=== PATIENT | male | born 1960 | race Caucasian/White ===

== ENCOUNTER 2018-04-24 06:28 | Observation (INO) | payer OTHER ==
[~2018-04-24] VITALS: Ht 177.8 cm; Wt 77.2 kg
[2018-04-24] VITALS (8 sets, daily range): BP systolic 143–187; BP diastolic 85–101
[~2018-04-24 06:28] MED LIST: CARI250T PO; HYDR-2678 PO; NAPR-683 PO; OMEP20TA8 PO; POTA20TA12 PO; VALS1TAB27 PO; [UNRECOGNIZED DRUG - OTHER]
--- NOTE | 2018-04-24 06:38 | EKG ---
[address] [address] Test Date: 2018-04-24 Test Time: 06:33:22 Pat Name: YELENA ESPANA Department: Room: Gender: M [employer] Law Clerk: : 1960 Requested By: BARBY VELEZ Order Number: [id number] Reading MD: Mik Hoskins MD Measurements Intervals [place] Rate: 72 P: 51 [place]: 174 QRS: 78 QRSD: 92 T: 28 QT: 414 QTc: 455 Interpretive Statements SINUS RHYTHM Electronically Signed On 04-24-2018 10:25:15 CDT by Mik Hoskins MD
[2018-04-24] MEDS: NITROGLYCERIN SUBLINGUAL 0.4 MG BOTTLE OF 25. SL PRN ×2 (06:40→20:36)
--- NOTE | 2018-04-24 06:50 | PHYS DOC ---
Past History Past Medical History: High Cholesterol, Hypertension, Other Additional Past Medical Histor: cerebral palsy, pulmonary hypertension Past Surgical History: Spleenectomy, Other Smoking: Non-smoker Alcohol Use: None Drug Use: None Adult General Chief Complaint Chief Complaint: CHEST PAIN [facility] HPI Patient is a 57-year-old female patient brought in by EMS because of chest pain. Patient complaining of left-sided chest pain since 2 AM that woke him up as a constant pain with episodes of sharp pain for about 30 seconds without radiation. Patient complaining of nausea and dizziness without shortness of breath, fever and chills, palpitation, focal neuro deficit. Patient states he had history of chest pain yesterday and diagnosed with coronary artery disease but did not have any procedure. Patient rated his pain as a severe pain. Patient has history of hypertension and dyslipidemia without diabetes. Patient does not smoke cigarettes but states he drinks 2-3 shots of hard liquor every day. Review of Systems Review of Systems Constitutional: Denies fever or chills [] Eyes: Denies change in visual acuity, redness, or eye pain [] HENT: Denies nasal congestion or sore throat [] Respiratory: Denies cough or shortness of breath [] Cardiovascular: No additional information not addressed in HPI [] GI: Denies abdominal pain, nausea, vomiting, bloody stools or diarrhea [] : Denies dysuria or hematuria [] Musculoskeletal: Denies back pain or joint pain [] Integument: Denies rash or skin lesions [] Neurologic: Denies headache, focal weakness or sensory changes [] Endocrine: Denies polyuria or polydipsia [] All other systems were reviewed and found to be within normal limits, except as documented in this note. Current Medications Current Medications Current Medications Medications (Trade) Dose Ordered Sig/Papito Start Time Stop Time Status Last Admin Dose Admin Aspirin (Children'S Aspirin) 324 mg 1X ONCE 04/24/18 07:00 04/24/18 07:01 04/24/18 06:39 324 MG Nitroglycerin (Nitrostat) 0.4 mg PRN Q5MIN PRN 04/24/18 06:45 04/25/18 06:44 04/24/18 06:40 0.4 MG Allergies Allergies Allergies Coded Allergies Type Severity Reaction Last Updated Verified No Known Drug Allergies 03/17/15 No Physical Exam Physical Exam Constitutional: Well nourished, mild distress, non-toxic appearance. [] HENT: Normocephalic, atraumatic, oropharynx moist, no oral exudates, nose normal. [] Eyes: PERRLA, EOMI, conjunctiva normal, no discharge. [] Neck: Normal range of motion, no tenderness, supple, no stridor. [] Cardiovascular:Heart rate regular rhythm, no murmur [] Lungs & Thorax: Bilateral breath sounds clear to auscultation [] Abdomen: Bowel sounds normal, soft, no tenderness, no masses, no pulsatile masses. [] Skin: Warm, dry, no erythema, no rash. [] Back: No tenderness, no CVA tenderness. [] Extremities: No tenderness, no cyanosis, no clubbing, ROM intact, no edema. [] Neurologic: Alert and oriented X 3, normal motor function, normal sensory function, no focal deficits noted. [] Psychologic: Affect anxious, judgement normal, mood normal. [] Current Patient Data Vital Signs Vital Signs Date Time Temp Pulse Resp B/P (MAP) Pulse Ox O2 Delivery O2 Flow Rate FiO2 04/24/18 06:40 68 200/118 EKG EKG Age interpreted by me. EKG at 0633 showed normal sinus rhythm at rate of 72, no ST and T-wave abnormalities[] Radiology/Procedures Radiology/Procedures [][address] [address] IMAGING REPORT Signed PATIENT: YELENA ESPANA ACCOUNT: [id number] : 1960 LOCATION: ER AGE: 57 SEX: M EXAM STATUS: REG ER ORD. PHYSICIAN: BARBY VELEZ MD REASON: chest pain PROCEDURE: PORTABLE CHEST 1V Portable chest, 04/24/2018: HISTORY: Chest pain Comparison is made to a study from 06/11/2013. The heart size and pulmonary vascularity are normal. No pulmonary consolidation is seen. There is no evidence of pleural fluid. IMPRESSION: No acute cardiopulmonary abnormality is detected. Electronically signed by: Ken Barrios MD (04/24/2018 7:38 AM) [facility] DICTATED AND SIGNED BY: KEN BARRIOS MD DATE: 04/24/18 1836 CC: BARBY VELEZ MD; JANA SHELTON MD ~ Course & Med Decision Making Course & Med Decision Making Pertinent Labs and Imaging studies reviewed. (See chart for details) Evaluation of patient in ER showed 57-year-old female patient with history of chronic alcohol abuse with complaining of chest pain since 2 AM. Patient had unremarkable EKG and chest x-ray and cardiac enzyme. Patient instructed not to 1 and his pain resolved. Patient had elevation of blood pressure that gradually decreased. Patient had potassium of 2.7 and magnesium of 1.3 and treated with IV magnesium and potassium. Dr. Agrawal informed at 0740 and agreed with admission of patient [] Dragon Disclaimer Dragon Disclaimer This electronic medical record was generated, in whole or in part, using a voice recognition dictation system. Departure Departure: Impression: Primary Impression: Acute chest pain Additional Impressions: Hypokalemia Hypomagnesemia Hypocalcemia Bilirubinemia Hypertensive urgency Elevated liver function tests Alcohol abuse Mononucleosis Disposition: ADMITTED INPATIENT (at 0 741) Admitting Physician: Bobo Agrawal Condition: IMPROVED Referrals: JANA SHELTON MD (PCP) Problem Qualifiers BARBY VELEZ MD Apr 24, 2018 06:50
[2018-04-24 06:59] LABS: HEMATOCRIT 48.9 % (39.0-53.0); HEMOGLOBIN 17.8 g/dL (13.0-17.5); MEAN CORPUSCULAR HEMOGLOBIN 36 pg (25-35); MEAN CORPUSCULAR VOLUME 100 fL (79-100); WHITE BLOOD COUNT 8.4 x10^3/uL (4.0-11.0)
[2018-04-24 07:00] LABS: BASO # 0.1 x10^3/uL (0.0-0.2); BASO % 1 % (0-3); EOS # 0.3 x10^3/uL (0.0-0.7); EOS % 4 % (0-3); LYMPH # 3.6 x10^3/uL (1.0-4.8); LYMPH % 43 % (24-48); MEAN CORPUSCULAR HGB CONC 36 g/dL (31-37); MONO # 1.4 x10^3/uL (0.0-1.1); MONO % 17 % (0-9); NEUT # 2.9 x10^3uL (1.8-7.7); NEUT % 35 % (31-73); PLATELET COUNT 207 x10^3/uL (140-400); RED CELL DISTRIBUTION WIDTH 14.5 % (11.5-14.5)
[2018-04-24] MEDS ORDERED: ASPIRIN 81 MG TAB.CHEW PO ONE (07:00)
[2018-04-24 07:09] LABS: ALBUMIN 3.3 g/dL (3.4-5.0); ALBUMIN/GLOBULIN RATIO 0.8 (1.0-1.7); ALK PHOS 71 U/L (46-116); ALT (SGPT) 62 U/L (16-63); ANION GAP 11 (6-14); AST (SGOT) 52 U/L (15-37); BLOOD UREA NITROGEN 7 mg/dL (8-26); BUN/CREATININE RATIO 9 (6-20); CALCIUM 8.4 mg/dL (8.5-10.1); CARBON DIOXIDE 29 mmol/L (21-32); CHLORIDE 105 mmol/L (98-107); CREATININE 0.8 mg/dL (0.7-1.3); GFR 99.6; GLUCOSE 108 mg/dL (70-99); LIPASE 161 U/L (73-393); MAGNESIUM 1.3 mg/dL (1.8-2.4); SODIUM 145 mmol/L (136-145); TOTAL BILIRUBIN 1.7 mg/dL (0.2-1.0); TOTAL PROTEIN 7.3 g/dL (6.4-8.2)
[2018-04-24 07:22] LABS: POTASSIUM 2.7 mmol/L (3.5-5.1)
[2018-04-24] MEDS ORDERED: MAGNESIUM SULFATE 1GM 100 ML IV ONE (07:30)
[2018-04-24] MEDS ORDERED: POTASSIUM CHLORIDE 20MEQ 100 ML IV ONE (07:30)
--- NOTE | 2018-04-24 07:42 | RAD ---
Portable chest, 04/24/2018: HISTORY: Chest pain Comparison is made to a study from 06/11/2013. The heart size and pulmonary vascularity are normal. No pulmonary consolidation is seen. There is no evidence of pleural fluid. IMPRESSION: No acute cardiopulmonary abnormality is detected. Electronically signed by: Ken Barrios MD (04/24/2018 7:38 AM) [facility]
[2018-04-24] MEDS ORDERED: POTASSIUM CHLORIDE 20 MEQ/15 ML ORAL LIQUID. FT SCH (09:00)
[2018-04-24] MEDS ORDERED: ONDANSETRON PF 4 MG/2 ML VIAL. IV PRN (09:00)
--- NOTE | 2018-04-24 09:21 | PDOC2 ---
CONSULT Date of Admission DATE: 04/24/18 TIME: :20 Reason for Consult: cp Problem List Problems Medical Problems: (1) Acute chest pain Status: Acute (2) Alcohol abuse Status: Acute (3) Bilirubinemia Status: Acute (4) Elevated liver function tests Status: Acute (5) Hypertensive urgency Status: Acute (6) Hypocalcemia Status: Acute (7) Hypokalemia Status: Acute (8) Hypomagnesemia Status: Acute (9) Mononucleosis Status: Acute History of Present Illness Mr Rojo is a 57 year old male who presents with complaints of chest pain which woke him from sleep. He reports a left sided chest pressure, radiating to his back which woke him from sleep early this am. He reports it lasted for about 30 seconds. He was able to go back to sleep. On rising at his normal time he had reoccurrence of pain while getting ready for work. This time he had associated weakness and lightheadedness so his called EMS. On arrival to the ED he was given NTG which resolved his discomfort. He is currently resting quietly. He denies prior discomfort, denies orthopnea or PND, denies palpitations or prior lightheadedness or syncope. He does have oxygen at home that he reports is for use on an as needed basis. Past Medical History cerebral palsy Cardiovascular: HTN, hyperipidemia Pulmonary: Other (pulmonary hypertension) GI: GI bleed Heme/Onc: Hemochromatosis Rheumatologic: Gout Past Surgical History cholecystectomy, splenectomy, left arthroscopic knee surgery, stretching of the hamstring muscles when he was young and colonoscopy for GI bleeding ~2years ago Past Surgical History: Cholecystectomy Family History Migraines, hemochromatosis, pancreatic cancer. no known premature coronary disease. Social History Non smoker, no illicit drugs, 3 shots of whiskey daily Current Medications Current Medications Aspirin (Children'S Aspirin) 324 mg 1X ONCE PO Last administered on 04/24/18at 06:39; Start 04/24/18 at 07:00; Stop 04/24/18 at 07:01; Status DC Nitroglycerin (Nitrostat) 0.4 mg PRN Q5MIN PRN SL CP RATING > 1/10 Last administered on 04/24/18at 06:40; Start 04/24/18 at 06:45; Stop 04/25/18 at 06:44 Potassium Chloride 100 ml @ 50 mls/hr 1X ONCE IV Last administered on at 07:37; Start 04/24/18 at 07:30; Stop 04/24/18 at 09:29 Magnesium Sulfate 100 ml @ 100 mls/hr 1X ONCE IV Last administered on at 07:38; Start 04/24/18 at 07:30; Stop 04/24/18 at 08:29; Status DC Ondansetron HCl (Zofran) 4 mg PRN Q8HRS PRN IV NAUSEA/VOMITING; Start 04/24/18 at 09:00 Potassium Chloride (KCl Oral Soln) 40 meq Q4H FT ; Start 04/24/18 at 09:00; Stop 04/24/18 at 13:01 Acetaminophen/ Hydrocodone Bitart (Lortab 10/325) 1 tab PRN Q6HRS PRN PO PAIN; Start 04/24/18 at 09:15 Active Scripts Active Potassium Chloride 20 Meq Tab.er.prt 1 Tab PO TIDWMEALS Reported Lortab 5-325 mg Tablet (Hydrocodone/Acetaminophen) 1 Each Tablet 1 Tab PO PRN Q6HRS PRN Soma (Carisoprodol) 250 Mg Tablet 250 Mg PO Naprosyn (Naproxen) 500 Mg Tablet 500 Mg PO Valsartan-Hctz 160-12.5 Mg Tab (Valsartan/Hydrochlorothiazide) 1 Each Tablet 1 Each PO [Amolodopine] Omeprazole 20 Mg Tablet.dr 20 Mg PO Allergies: Coded Allergies: No Known Drug Allergies (Unverified , 03/17/15) Review of System as per HPI or negative General: Alert, Oriented X3, Cooperative, No acute distress HEENT: Atraumatic, EOMI, Mucous membr. moist/pink Lungs: Other (decreased bases otherwise clear) Heart: Regular rate, Normal S1, Normal S2 Abdomen: Normal bowel sounds, Soft, No tenderness Extremities: No cyanosis, No edema, Normal pulses Psych/Mental Status: Mental status NL, Mood NL VITALS Vital Signs Date Time Temp Pulse Resp B/P (MAP) Pulse Ox O2 Delivery O2 Flow Rate FiO2 04/24/18 09:04 98.5 65 20 187/101 (129) 94 Nasal Cannula 2.0 Labs Laboratory Tests Test 04/24/18 06:32 White Blood Count 8.4 x10^3/uL (4.0-11.0) Red Blood Count 4.90 x10^6/uL (4.30-5.70) Hemoglobin 17.8 g/dL (13.0-17.5) Hematocrit 48.9 % (39.0-53.0) Mean Corpuscular Volume 100 fL (79-100) Mean Corpuscular Hemoglobin 36 pg (25-35) Mean Corpuscular Hemoglobin Concent 36 g/dL (31-37) Red Cell Distribution Width 14.5 % (11.5-14.5) Platelet Count 207 x10^3/uL (140-400) Neutrophils (%) (Auto) 35 % (31-73) Lymphocytes (%) (Auto) 43 % (24-48) Monocytes (%) (Auto) 17 % (0-9) Eosinophils (%) (Auto) 4 % (0-3) Basophils (%) (Auto) 1 % (0-3) Neutrophils # (Auto) 2.9 x10^3uL (1.8-7.7) Lymphocytes # (Auto) 3.6 x10^3/uL (1.0-4.8) Monocytes # (Auto) 1.4 x10^3/uL (0.0-1.1) Eosinophils # (Auto) 0.3 x10^3/uL (0.0-0.7) Basophils # (Auto) 0.1 x10^3/uL (0.0-0.2) Prothrombin Time 11.2 SEC (9.4-11.4) Prothromb Time International Ratio 1.1 (0.9-1.1) Sodium Level 145 mmol/L (136-145) Potassium Level 2.7 mmol/L (3.5-5.1) Chloride Level 105 mmol/L (98-107) Carbon Dioxide Level 29 mmol/L (21-32) Anion Gap 11 (6-14) Blood Urea Nitrogen 7 mg/dL (8-26) Creatinine 0.8 mg/dL (0.7-1.3) Estimated GFR (Cockcroft-Gault) 99.6 BUN/Creatinine Ratio 9 (6-20) Glucose Level 108 mg/dL (70-99) Calcium Level 8.4 mg/dL (8.5-10.1) Magnesium Level 1.3 mg/dL (1.8-2.4) Total Bilirubin 1.7 mg/dL (0.2-1.0) Aspartate Amino Transf (AST/SGOT) 52 U/L (15-37) Alanine Aminotransferase (ALT/SGPT) 62 U/L (16-63) Alkaline Phosphatase 71 U/L (46-116) Creatine Kinase 38 U/L (39-308) Creatine Kinase MB (Mass) < 0.5 ng/mL (0.0-3.6) Creatine Kinase MB Relative Index 1.3 % (0-4) Troponin I Quantitative < 0.017 ng/mL (0-0.055) DZ-Kzh-X-Type Natriuretic Peptide 87 pg/mL (0-124) Total Protein 7.3 g/dL (6.4-8.2) Albumin 3.3 g/dL (3.4-5.0) Albumin/Globulin Ratio 0.8 (1.0-1.7) Lipase 161 U/L (73-393) Images EKG sinus rhythm without acute ischemic changes CXR - IMPRESSION: No acute cardiopulmonary abnormality is detected. Assessment/Plan 1. chest pain, relieved with nitrates - continue serial enzymes, add beta antony, PRN nitrates, check echo and if CE remains negative, plan for MPI in am. 2. accelerated hypertension - resume home medications and monitor 3. electrolyte imbalance - replace and monitor 4. hyperlipidemia - check lipids 5. hemochromatosis - per VIMAL CORNELL APRN Apr 24, 2018 09:21
[2018-04-24] MEDS ORDERED: METOPROLOL TART IMMED RELEASE 25 MG TABLET PO SCH (09:30)
[2018-04-24] MEDS: ASPIRIN ENTERIC COATED 81 MG TABLET.DR. PO SCH (09:30)
[2018-04-24] MEDS: HYDROcodone/APAP 10/325 1 TAB TABLET PO PRN ×3 (09:55→23:41)
[2018-04-24] MEDS: POTASSIUM CHLORIDE 20 MEQ TABLET.ER. PO SCH ×2 (09:55→13:15)
[2018-04-24 10:01] LABS: AMPHETAMINE/METHAMPHETAMINE NEG (NEG); BARBITURATES NEG (NEG); BENZODIAZEPINES NEG (NEG); CANNABINOIDS NEG (NEG); COCAINE NEG (NEG); METHADONE NEG (NEG); OPIATES NEG (NEG); PHENCYCLIDINE NEG (NEG)
[2018-04-24] MEDS ORDERED: AMLO10TA4 PO (11:23)
[2018-04-24] MEDS ORDERED: POLY17PO5 PO (11:23)
[2018-04-24] MEDS ORDERED: HALOPERIDOL LACT 5 MG/ML VIAL. IM PRN (13:30)
[2018-04-24] MEDS ORDERED: LORazepam 1 MG TABLET PO PRN ×2 (13:30)
[2018-04-24] MEDS ORDERED: diphenhydrAMINE 50 MG/ML VIAL IVP PRN (13:30)
[2018-04-24] MEDS ORDERED: LORazepam 2 MG/ML VIAL IV PRN ×3 (13:30)
[2018-04-24] MEDS ORDERED: cloNIDine HCL 0.1 MG TABLET PO PRN (13:30)
[2018-04-24] MEDS ORDERED: chlordiazePOXIDE HCL 25 MG CAPSULE PO PRN ×2 (13:30)
--- NOTE | 2018-04-24 13:53 | HP ---
ADMIT DATE: 04/24/2018 HISTORY OF PRESENT ILLNESS: The patient is a 57-year-old male patient who came to the Emergency Room complaining of chest pain that awakened him around 2:00 in the morning. He apparently woke up at 5:00 again to go to work. When he woke up at 5:00 to go to work, he started complaining again of chest pain and basically decided to come to the Emergency Room where he was evaluated, he was given sublingual nitroglycerin that has relieved his chest pain and was admitted. While in the Emergency Room, he was found also to have hypokalemia, hypomagnesemia, hypocalcemia, and his blood pressure was found to be markedly elevated and therefore he was admitted to do 2 more sets of cardiac enzyme and also to consult the Cardiology Team. PAST MEDICAL HISTORY: Significant for cerebral palsy, he is known to have hemochromatosis, hypertension, hyperlipidemia. He has had splenectomy in 2007. PAST SURGICAL HISTORY: Significant for splenectomy, left arthroscopic knee surgery, stretching of the hamstring muscles when he was young, and also colonoscopy for lower GI bleed. ALLERGIES: He has no known drug allergies. MEDICATIONS: He is currently on following medications: He is on Soma 350 mg 4 times a day; amlodipine 10 mg once a day; valsartan/hydrochlorothiazide 160/12.5 mg, he takes 2 tablets once a day; naproxen 500 mg once a day; hydrocodone/APAP 5/325 one tablet every 6 hours. He is on potassium chloride 20 mEq 3 times a day with meals, polyethylene glycol 17 gm daily for constipation, omeprazole 20 mg once a day. FAMILY HISTORY: He 1 older sister who was migraine and 1 younger brother who is also known to have hemochromatosis. His father at age of 52. The cause of his is not known to him. His mother at age of 52 because of pancreatic cancer. SOCIAL HISTORY: He is , has no children. He does not smoke, but drinks 3 shots of whiskey on a daily basis. He does not use any drugs. He works at [employer]. REVIEW OF SYSTEMS: The patient denied any blurring of vision, cataract, glaucoma, or macular degeneration. Denied any earache, tinnitus, or sensorineural deafness. Denied any nosebleeds, stuffy nose, or postnasal drip. Denied any sore throat, sore tongue, toothache, hoarseness of voice, or difficulty swallowing. Denied any nausea, vomiting, diarrhea, or constipation. Denied any hematemesis, melena, or hematochezia. Denied any dysuria, frequency, or hematuria. Did complain of chest pain, but denied any shortness of breath. Denied any nausea or vomiting. Denied any diaphoresis. LABORATORY DATA: On arrival to the Emergency Room, his lab work showed a white cell count of 8400, hemoglobin 17.8, hematocrit 48.9, MCV 100, and platelet count of 207,000 with manual differential showed 35% polymorphs, 43% lymphocytes, and 4% eosinophil. His chemistry showed a serum sodium 145, potassium 2.7, chloride 105, bicarbonate 29, anion gap of 11, BUN 7, creatinine 0.8, estimated GFR was 99 mL per minute. His glucose was 108, calcium was 8.4, magnesium was 1.3. Total bilirubin is 1.7. AST was slightly elevated at 52, ALT and alkaline phosphatase normal. His total protein was 7.3, albumin 3.3. His first set of cardiac enzymes showed troponin to be less than 0.017. His prothrombin time was 11.2, INR 1.1 and toxic screen was essentially negative. His chest x-ray showed the heart size and pulmonary vascularities are normal. No pulmonary consolidation is seen. There is no evidence of pleural effusion. The patient was admitted to do 2 more sets of cardiac enzyme and to consult the Cardiology. We will check his fasting lipid profile tomorrow. He also drinks alcohol every day, so we will start him on alcohol withdrawal protocol. He is known to have hemochromatosis and he probably needs a phlebotomy given that his hemoglobin was 17.8, hematocrit 48.9. SHANDA GIBSON MD DR: JAMEL/lyn JOB#: [id number] / [id number]
[2018-04-24 15:35] LABS: CALCIUM 8.4 mg/dL (8.5-10.1); CREATININE 0.9 mg/dL (0.7-1.3)
[2018-04-24] MEDS ORDERED: HYDR-2766 PO (15:49)
[2018-04-24] MEDS ORDERED: POTASSIUM CHLORIDE 40 MEQ in IV NORMAL SALINE 1,000ML 1,000 ML IV SCH (16:00)
--- NOTE | 2018-04-24 18:48 | EKG ---
[address] [address] Test Date: 2018-04-24 Test Time: 18:43:40 Pat Name: YELENA ESPANA Department: Room: 117 A Gender: M Director Of Consumer Marketing: : 1960 Requested By: SHANDA GIBSON Order Number: [id number] Reading MD: Mik Hoskins MD Measurements Intervals [place] Rate: 53 P: 32 [place]: 180 QRS: 39 QRSD: 92 T: 28 QT: 452 QTc: 426 Interpretive Statements SINUS RHYTHM Electronically Signed On 04-26-2018 8:21:49 CDT by Mik Hoskins MD
[2018-04-24 19:51] LABS: BACTERIA,URINE FEW /HPF (0-FEW); BILIRUBIN,URINE NEG (NEG); CLARITY,URINE CLEAR; COLOR,URINE YELLOW; GLUCOSE,URINE NEG (NEG); NITRITE,URINE NEG (NEG); RBC,URINE RARE /HPF (0-2); SQUAMOUS EPITHELIAL CELL,UR MOD /LPF; UROBILINOGEN,URINE 0.2 mg/dL (0.2 mg/dL); WBC,URINE OCC /HPF (0-4)
[2018-04-24 19:52] LABS: AMPHETAMINE/METHAMPHETAMINE NEG (NEG); BARBITURATES NEG (NEG); BENZODIAZEPINES NEG (NEG); CANNABINOIDS NEG (NEG); COCAINE NEG (NEG); METHADONE NEG (NEG); OPIATES POS (NEG); PHENCYCLIDINE NEG (NEG)
[2018-04-24] MEDS: POTASSIUM CL 40MEQ IN 0.9%NACL 1,000 ML IV SCH (20:35)
[2018-04-24] MEDS: MORPHINE SULFATE 4 MG/ML DISP.SYRIN. IV PRN (21:11)
[2018-04-24] MEDS: ENOXAPARIN ** NOTE DOSE ** SYRINGE SQ SCH (21:11)
--- NOTE | 2018-04-24 21:55 | RAD ---
CHEST AP ONLY dated 04/24/2018 6:49 PM. Comparison: 04/24/2018 Clinical Indication: SOA, DIAPHORESIS. Findings: Single upright portable exam performed. Heart and mediastinal contours are stable. Lungs are hypoinflated, limiting evaluation. There is some patchy increased density at both lung bases, unchanged. No definite pleural effusion or pneumothorax. Impression: Patchy bibasilar opacity, likely atelectasis. Electronically signed by: Ryland Patricia MD (04/24/2018 9:51 PM) [id number]
[2018-04-25 00:44] VITALS: BP 167/104
[2018-04-25] MEDS: NITROGLYCERIN SUBLINGUAL 0.4 MG BOTTLE OF 25. SL PRN (00:45)
[2018-04-25 01:05] VITALS: BP 146/88
[2018-04-25] MEDS: MORPHINE SULFATE 4 MG/ML DISP.SYRIN. IV PRN ×2 (01:06→06:36)
[2018-04-25 01:26] VITALS: BP 149/85
--- NOTE | 2018-04-25 01:39 | EKG ---
[address] [address] Test Date: 2018-04-25 Test Time: 01:36:01 Pat Name: YELENA ESPANA Department: Room: 117 A Gender: M Commodities Requirements Analyst: : 1960 Requested By: SHANDA GIBSON Order Number: [id number] Reading MD: Mik Hoskins MD Measurements Intervals [place] Rate: 57 P: 36 OR: 182 QRS: 36 QRSD: 90 T: 9 QT: 420 QTc: 412 Interpretive Statements SINUS RHYTHM Electronically Signed On 04-26-2018 8:22:17 CDT by Mik Hoskins MD
[2018-04-25 05:44] VITALS: BP 147/98
[2018-04-25] MEDS: POTASSIUM CL 40MEQ IN 0.9%NACL 1,000 ML IV SCH (06:32)
[2018-04-25 06:40] LABS: CALCIUM 8.1 mg/dL (8.5-10.1); CREATININE 0.6 mg/dL (0.7-1.3); GFR 138.9
[2018-04-25 07:10] LABS: BASO # 0.1 x10^3/uL (0.0-0.2); BASO % 1 % (0-3); EOS # 0.4 x10^3/uL (0.0-0.7); EOS % 5 % (0-3); HEMATOCRIT 45.8 % (39.0-53.0); HEMOGLOBIN 16.1 g/dL (13.0-17.5); LYMPH # 3.1 x10^3/uL (1.0-4.8); LYMPH % 39 % (24-48); MEAN CORPUSCULAR HEMOGLOBIN 36 pg (25-35); MEAN CORPUSCULAR HGB CONC 35 g/dL (31-37); MEAN CORPUSCULAR VOLUME 102 fL (79-100); MONO # 0.8 x10^3/uL (0.0-1.1); MONO % 11 % (0-9); NEUT # 3.5 x10^3uL (1.8-7.7); NEUT % 45 % (31-73); PLATELET COUNT 189 x10^3/uL (140-400); RED BLOOD COUNT 4.48 x10^6/uL (4.30-5.70); WHITE BLOOD COUNT 7.8 x10^3/uL (4.0-11.0)
[2018-04-25] MEDS ORDERED: IOHEXOL 300 MG/ML 75 ML VIAL. IV ONE (07:45)
[2018-04-25] MEDS ORDERED: REGADENOSON 0.4 MG/5 ML DISP.SYRIN. IV ONE (08:45)
[2018-04-25] MEDS ORDERED: MULTIVITAMIN with MINERAL TABLET. PO SCH (09:00)
[2018-04-25] MEDS ORDERED: FOLIC ACID 1 MG TABLET PO SCH (09:00)
[2018-04-25] MEDS ORDERED: THIAMINE IM 200 MG/2 ML VIAL. IM SCH (09:00)
[2018-04-25] MEDS ORDERED: LIDO:MAALOX 1:1 20 ML SINGLE DOSE. PO ONE (09:30)
[2018-04-25 11:51] VITALS: BP 149/82
--- NOTE | 2018-04-25 11:54 | RAD ---
CTA chest with contrast Indication: elevated d dimer, chest pain, pt could not lift arms above head, has Cerebral palsy . Comparison: No comparison is available. Technique: After intravenous contrast administration, CT imaging was performed of the chest. MIP reconstructions were obtained. Exposure: One or more of the following individualized dose reduction techniques were utilized for this examination: 1. Automated exposure control 2. Adjustment of the mA and/or kV according to patient size 3. Use of iterative reconstruction technique. FINDINGS: Pulmonary arteries: No evidence of central embolism. Note that the segmental and subsegmental branches are suboptimally opacified, limiting evaluation. Thoracic aorta: No evidence of aortic aneurysm or dissection. Thyroid gland:Visualized aspect is unremarkable. Lymph nodes:No significant enlargement Heart: No significant pericadial effusion. Esophagus: Unremarkable Pleural spaces: No significant effusion Lungs: Mild atelectasis or infiltrate in the left lower lobe and to a lesser extent right lower lobe. Trachea and central airways: Patent Bones: Degenerative changes of the spine Upper abdomen: Slices through the upper abdomen are limited due to the technique .No obvious acute findings. IMPRESSION: 1. No evidence of pulmonary embolism. However, note there is suboptimal visualization of segmental and subsegmental branches. 2. Mild infiltrates/atelectasis in lower lobes. Electronically signed by: Ryland Watson MD (04/25/2018 11:51 AM) [id number]
[2018-04-25] MEDS: ENOXAPARIN ** NOTE DOSE ** SYRINGE SQ SCH (11:56)
[2018-04-25] MEDS: ASPIRIN ENTERIC COATED 81 MG TABLET.DR. PO SCH (11:56)
--- NOTE | 2018-04-25 12:31 | PDOC ---
PROGRESS NOTES Diagnosis Problem Problems Medical Problems: (1) Acute chest pain Status: Acute (2) Alcohol abuse Status: Acute (3) Bilirubinemia Status: Acute (4) Elevated liver function tests Status: Acute (5) Hypertensive urgency Status: Acute (6) Hypocalcemia Status: Acute (7) Hypokalemia Status: Acute (8) Hypomagnesemia Status: Acute (9) Mononucleosis Status: Acute Assessment Problems Medical Problems: (1) Acute chest pain Status: Acute (2) Alcohol abuse Status: Acute (3) Bilirubinemia Status: Acute (4) Elevated liver function tests Status: Acute (5) Hypertensive urgency Status: Acute (6) Hypocalcemia Status: Acute (7) Hypokalemia Status: Acute (8) Hypomagnesemia Status: Acute (9) Mononucleosis Status: Acute 1. chest pain, relieved with nitrates - serial enzymes all negative, echo pending, MPI this am. IF echo and MPI unremarkable would consider GI evaluation outpatient. 2. accelerated hypertension - blood pressure improved. Beta antony stopped secondary to bradycardia. add ACEI. 3. bradycardia - sinus royce. stopped BB. Consider outpatient event monitoring. 4. electrolyte imbalance - replaced and now WNL 5. hyperlipidemia - lipids pending 6. elevated d dimer - CT negative for PE though suboptimal visualization of segmental and subsegmental branches. bilateral infiltrate/atelectasis. Per IM. 7. hemochromatosis - per IM Subjective episode chest pain last pm with diaphoresis, intermittent sinus bradycardia with no acute ekg changes. No chest pain, dyspnea, palpitations, lightheadedness currently. Objective tele - sinus rhythm with occasional episodes of sinus bradycardia, no acute arrhythmias. Vital Signs Date Time Temp Pulse Resp B/P (MAP) Pulse Ox O2 Delivery O2 Flow Rate FiO2 04/25/18 11:51 97.7 61 24 149/82 (104) 93 Nasal Cannula 4.0 Intake and Output 04/25/18 07:00 Intake Total 1020 ml Output Total 400 ml Balance 620 ml Intake Oral 1000 ml IV Total 20 ml Output Urine Total 400 ml Abdomen: Normal bowel sounds, Soft Heart: Regular rate, Normal S1, Normal S2 Extremities: No cyanosis, No edema, Normal pulses General: Alert, Oriented X3, Cooperative, No acute distress Lungs: Clear to auscultation Neuro: Normal speech Psych/Mental Status: Mental status NL, Mood NL Review of Relevant I have reviewed the following items eduard (where applicable) has been applied. Labs Laboratory Tests Test 04/24/18 06:32 04/24/18 09:40 04/24/18 10:35 04/24/18 13:47 White Blood Count 8.4 x10^3/uL (4.0-11.0) Red Blood Count 4.90 x10^6/uL (4.30-5.70) Hemoglobin 17.8 g/dL (13.0-17.5) Hematocrit 48.9 % (39.0-53.0) Mean Corpuscular Volume 100 fL (79-100) Mean Corpuscular Hemoglobin 36 pg (25-35) Mean Corpuscular Hemoglobin Concent 36 g/dL (31-37) Red Cell Distribution Width 14.5 % (11.5-14.5) Platelet Count 207 x10^3/uL (140-400) Neutrophils (%) (Auto) 35 % (31-73) Lymphocytes (%) (Auto) 43 % (24-48) Monocytes (%) (Auto) 17 % (0-9) Eosinophils (%) (Auto) 4 % (0-3) Basophils (%) (Auto) 1 % (0-3) Neutrophils # (Auto) 2.9 x10^3uL (1.8-7.7) Lymphocytes # (Auto) 3.6 x10^3/uL (1.0-4.8) Monocytes # (Auto) 1.4 x10^3/uL (0.0-1.1) Eosinophils # (Auto) 0.3 x10^3/uL (0.0-0.7) Basophils # (Auto) 0.1 x10^3/uL (0.0-0.2) Prothrombin Time 11.2 SEC (9.4-11.4) Prothromb Time International Ratio 1.1 (0.9-1.1) Sodium Level 145 mmol/L (136-145) Potassium Level 2.7 mmol/L (3.5-5.1) Chloride Level 105 mmol/L (98-107) Carbon Dioxide Level 29 mmol/L (21-32) Anion Gap 11 (6-14) Blood Urea Nitrogen 7 mg/dL (8-26) Creatinine 0.8 mg/dL (0.7-1.3) Estimated GFR (Cockcroft-Gault) 99.6 BUN/Creatinine Ratio 9 (6-20) Glucose Level 108 mg/dL (70-99) Calcium Level 8.4 mg/dL (8.5-10.1) Magnesium Level 1.3 mg/dL (1.8-2.4) Total Bilirubin 1.7 mg/dL (0.2-1.0) Aspartate Amino Transf (AST/SGOT) 52 U/L (15-37) Alanine Aminotransferase (ALT/SGPT) 62 U/L (16-63) Alkaline Phosphatase 71 U/L (46-116) Creatine Kinase 38 U/L (39-308) Creatine Kinase MB (Mass) < 0.5 ng/mL (0.0-3.6) Creatine Kinase MB Relative Index 1.3 % (0-4) Troponin I Quantitative < 0.017 ng/mL (0-0.055) < 0.017 ng/mL (0-0.055) < 0.017 ng/mL (0-0.055) MG-Cph-E-Type Natriuretic Peptide 87 pg/mL (0-124) Total Protein 7.3 g/dL (6.4-8.2) Albumin 3.3 g/dL (3.4-5.0) Albumin/Globulin Ratio 0.8 (1.0-1.7) Triglycerides Level 233 mg/dL (0-150) Cholesterol Level 194 mg/dL (0-200) LDL Cholesterol, Calculated 96 mg/dL (0-100) VLDL Cholesterol, Calculated 46 mg/dL (0-40) Non-HDL Cholesterol Calculated 142 mg/dL (0-129) HDL Cholesterol 52 mg/dL (40-60) Cholesterol/HDL Ratio 3.0 Lipase 161 U/L (73-393) Urine Opiates Screen Neg (NEG) Urine Methadone Screen Neg (NEG) Urine Barbiturates Neg (NEG) Urine Phencyclidine Screen Neg (NEG) Urine Amphetamine/Methamphetamine Neg (NEG) Urine Benzodiazepines Screen Neg (NEG) Urine Cocaine Screen Neg (NEG) Urine Cannabinoids Screen Neg (NEG) Urine Ethyl Alcohol Neg (NEG) Test 04/24/18 15:28 04/24/18 19:25 04/24/18 19:30 04/25/18 01:35 Sodium Level 144 mmol/L (136-145) Potassium Level 3.0 mmol/L (3.5-5.1) Chloride Level 104 mmol/L (98-107) Carbon Dioxide Level 29 mmol/L (21-32) Anion Gap 11 (6-14) Blood Urea Nitrogen 9 mg/dL (8-26) Creatinine 0.9 mg/dL (0.7-1.3) Estimated GFR (Cockcroft-Gault) 87.0 Glucose Level 187 mg/dL (70-99) Calcium Level 8.4 mg/dL (8.5-10.1) D-Dimer (Elsy) 3.74 mg/L (0.00-0.50) Troponin I Quantitative < 0.017 ng/mL (0-0.055) < 0.017 ng/mL (0-0.055) Urine Collection Type Void Urine Color Yellow Urine Clarity Clear Urine pH 6.0 Urine Specific Heyburn 1.025 Urine Protein Neg (NEG-TRACE) Urine Glucose (UA) Neg mg/dL (NEG) Urine Ketones (Stick) Trace mg/dL (NEG) Urine Blood Neg (NEG) Urine Nitrite Neg (NEG) Urine Bilirubin Neg (NEG) Urine Urobilinogen Dipstick 0.2 mg/dL (0.2 mg/dL) Urine Leukocyte Esterase Neg (NEG) Urine RBC Rare /HPF (0-2) Urine WBC Occ /HPF (0-4) Urine Squamous Epithelial Cells Mod /LPF Urine Bacteria Few /HPF (0-FEW) Urine Mucus Mod /LPF Urine Opiates Screen Pos (NEG) Urine Methadone Screen Neg (NEG) Urine Barbiturates Neg (NEG) Urine Phencyclidine Screen Neg (NEG) Urine Amphetamine/Methamphetamine Neg (NEG) Urine Benzodiazepines Screen Neg (NEG) Urine Cocaine Screen Neg (NEG) Urine Cannabinoids Screen Neg (NEG) Urine Ethyl Alcohol Neg (NEG) Test 04/25/18 06:10 White Blood Count 7.8 x10^3/uL (4.0-11.0) Red Blood Count 4.48 x10^6/uL (4.30-5.70) Hemoglobin 16.1 g/dL (13.0-17.5) Hematocrit 45.8 % (39.0-53.0) Mean Corpuscular Volume 102 fL (79-100) Mean Corpuscular Hemoglobin 36 pg (25-35) Mean Corpuscular Hemoglobin Concent 35 g/dL (31-37) Red Cell Distribution Width 15.0 % (11.5-14.5) Platelet Count 189 x10^3/uL (140-400) Neutrophils (%) (Auto) 45 % (31-73) Lymphocytes (%) (Auto) 39 % (24-48) Monocytes (%) (Auto) 11 % (0-9) Eosinophils (%) (Auto) 5 % (0-3) Basophils (%) (Auto) 1 % (0-3) Neutrophils # (Auto) 3.5 x10^3uL (1.8-7.7) Lymphocytes # (Auto) 3.1 x10^3/uL (1.0-4.8) Monocytes # (Auto) 0.8 x10^3/uL (0.0-1.1) Eosinophils # (Auto) 0.4 x10^3/uL (0.0-0.7) Basophils # (Auto) 0.1 x10^3/uL (0.0-0.2) Sodium Level 144 mmol/L (136-145) Potassium Level 4.0 mmol/L (3.5-5.1) Chloride Level 109 mmol/L (98-107) Carbon Dioxide Level 28 mmol/L (21-32) Anion Gap 7 (6-14) Blood Urea Nitrogen 9 mg/dL (8-26) Creatinine 0.6 mg/dL (0.7-1.3) Estimated GFR (Cockcroft-Gault) 138.9 Glucose Level 101 mg/dL (70-99) Calcium Level 8.1 mg/dL (8.5-10.1) Magnesium Level 1.7 mg/dL (1.8-2.4) Medications Current Medications Aspirin (Children'S Aspirin) 324 mg 1X ONCE PO Last administered on 04/24/18at 06:39; Start 04/24/18 at 07:00; Stop 04/24/18 at 07:01; Status DC Nitroglycerin (Nitrostat) 0.4 mg PRN Q5MIN PRN SL CP RATING > 1/10 Last administered on 04/25/18at 00:45; Start 04/24/18 at 06:45; Stop 04/25/18 at 06:45 ; Status DC Potassium Chloride 100 ml @ 50 mls/hr 1X ONCE IV Last administered on at 07:37; Start 04/24/18 at 07:30; Stop 04/24/18 at 09:29; Status DC Magnesium Sulfate 100 ml @ 100 mls/hr 1X ONCE IV Last administered on at 07:38; Start 04/24/18 at 07:30; Stop 04/24/18 at 08:29; Status DC Ondansetron HCl (Zofran) 4 mg PRN Q8HRS PRN IV NAUSEA/VOMITING Last administered on 04/25/18at 01:03; Start 04/24/18 at 09:00 Potassium Chloride (KCl Oral Soln) 40 meq Q4H FT ; Start 04/24/18 at 09:00; Stop 04/24/18 at 09:32; Status DC Acetaminophen/ Hydrocodone Bitart (Lortab 10/325) 1 tab PRN Q6HRS PRN PO PAIN Last administered on 04/24/18at 23:41; Start 04/24/18 at 09:15 Metoprolol Tartrate (Lopressor) 25 mg BID PO Last administered on 04/24/18at 09: 55; Start 04/24/18 at 09:30; Stop 04/24/18 at 18:54; Status DC Aspirin (Aspirin Enteric Coated) 81 mg DAILYWBKFT PO Last administered on at 11:56; Start 04/24/18 at 09:30 Potassium Chloride (Klor-Con) 40 meq Q4H PO Last administered on 04/24/18at 13: 15; Start 04/24/18 at 09:45; Stop 04/24/18 at 13:46; Status DC Multivitamins/ Calcium (Thera-M Plus) 1 tab DAILY PO Last administered on at 11:56; Start 04/25/18 at 09:00 Folic Acid (Folic Acid) 1 mg DAILY PO Last administered on 04/25/18at 11:56; Start 04/25/18 at 09:00 Thiamine HCl (Thiamine Im) 100 mg DAILY IM ; Start 04/25/18 at 09:00; Stop 04/30 at 08:59 Chlordiazepoxide (Librium) 50 mg PRN Q1HR PRN PO For CIWA 8-14; Start 04/24/18 at 13:30 Chlordiazepoxide (Librium) 100 mg PRN Q1HR PRN PO For CIWA 15 or greater; Start 04/24/18 at 13:30 Lorazepam (Ativan) 4 mg PRN Q1HR PRN PO For CIWA 8-14; Start 04/24/18 at 13:30 Lorazepam (Ativan) 8 mg PRN Q1HR PRN PO For CIWA 15 or greater; Start 04/24/18 at 13:30 Lorazepam (Ativan) 2 mg PRN Q1HR PRN IV For CIWA 8-14; Start 04/24/18 at 13:30 Haloperidol Lactate (Haldol) 5 mg PRN Q4HRS PRN IM Hallucinatns,Confusn, Delirium; Start 04/24/18 at 13:30 Diphenhydramine HCl (Benadryl) 25 mg PRN Q15MIN PRN IVP EPS symptoms 2'Haldol admin; Start 04/24/18 at 13:30 Clonidine HCl (Catapres) 0.1 mg PRN Q1HR PRN PO SBP>180 OR DBP>100, MR X 3; Start 04/24/18 at 13:30 Lorazepam (Ativan) 2 mg PRN Q15MIN PRN IV ANXIETY / AGITATION; Start 04/24/18 at 13:30 Lorazepam (Ativan) 2 mg PRN Q15MIN PRN IV ANXIETY / AGITATION; Start 04/24/18 at 13:30 Potassium Chloride 40 meq/ Sodium Chloride 1,020 ml @ 100 mls/hr [id number] IV ; Start 04/24/18 at 16:00; Stop 04/24/18 at 16:00; Status DC Potassium Chloride/Sodium Chloride 1,000 ml @ 100 mls/hr Q10H IV Last administered on 04/25/18at 06:32; Start 04/24/18 at 16:00 Morphine Sulfate (Morphine 4mg Syringe) 4 mg PRN Q4HRS PRN IV PAIN Last administered on 04/25/18at 06:36; Start 04/24/18 at 20:30 Enoxaparin Sodium (Lovenox 80mg Syringe) 75 mg BID SQ Last administered on 04/25at 11:56; Start 04/24/18 at 21:00 Iohexol (Omnipaque 300 Mg/ml) 75 ml 1X ONCE IV Last administered on 04/25/18at 08:44; Start 04/25/18 at 07:45; Stop 04/25/18 at 07:47; Status DC Regadenoson (Lexiscan) 0.4 mg 1X ONCE IV ; Start 04/25/18 at 08:45; Stop at 08:46; Status DC Multi-Ingredient Mouthwash/Gargle (Gi Cocktail) 20 ml 1X ONCE PO Last administered on 04/25/18at 09:51; Start 04/25/18 at 09:30; Stop 04/25/18 at 09:31 ; Status DC Active Scripts Active Reported Hydrocodone-Apap 10-325 (Hydrocodone Bit/Acetaminophen) 1 Each Tablet 1 Tab PO PRN Q6HRS PRN Miralax (Polyethylene Glycol 3350) 17 Gm Powd.pack 1 Packet PO DAILY Norvasc (Amlodipine Besylate) 10 Mg Tablet 1 Tab PO HS Soma (Carisoprodol) 250 Mg Tablet 350 Mg PO QIDAFTMEAL Naprosyn (Naproxen) 500 Mg Tablet 500 Mg PO DAILY Valsartan-Hctz 160-12.5 Mg Tab (Valsartan/Hydrochlorothiazide) 1 Each Tablet 2 Each PO HS Omeprazole 20 Mg Tablet.dr 20 Mg PO DAILY Vitals/I & O Vital Sign - Last 24 Hours 04/24/18 04/24/18 04/24/18 04/24/18 14:51 18:33 18:34 18:39 Temp 97.8 97.9 Pulse 59 61 65 Resp 16 18 18 B/P (MAP) 143/85 (104) 169/98 (121) 155/94 (114) Pulse Ox 91 91 93 O2 Delivery Nasal Cannula Nasal Cannula Nasal Cannula O2 Flow Rate 2.0 3.0 3.0 04/24/18 04/24/18 04/24/18 04/24/18 19:39 19:45 20:36 21:01 Temp 97.6 Pulse 61 61 64 Resp 24 20 B/P (MAP) 163/95 (117) 163/95 158/86 (110) Pulse Ox 94 92 O2 Delivery Nasal Cannula Nasal Cannula Nasal Cannula O2 Flow Rate 3.0 3.0 3.0 04/24/18 04/24/18 04/24/18 04/25/18 21:11 23:03 23:41 00:44 Temp 97.8 Pulse 66 60 Resp 20 22 B/P (MAP) 151/86 (107) 167/104 (125) Pulse Ox 92 92 94 92 O2 Delivery Nasal Cannula Nasal Cannula Nasal Cannula Nasal Cannula O2 Flow Rate 3.0 3.0 3.0 4.0 04/25/18 04/25/18 04/25/18 04/25/18 00:45 00:53 01:05 01:06 Temp 97.5 Pulse 63 66 Resp 22 B/P (MAP) 167/104 146/88 (107) Pulse Ox 92 93 92 O2 Delivery Nasal Cannula Nasal Cannula Nasal Cannula O2 Flow Rate 3.0 4.0 3.0 04/25/18 04/25/18 04/25/18 04/25/18 01:26 01:51 05:44 06:36 Temp 98.5 Pulse 64 62 Resp 22 24 20 B/P (MAP) 149/85 (106) 147/98 (114) Pulse Ox 92 93 O2 Delivery Nasal Cannula Nasal Cannula Nasal Cannula O2 Flow Rate 4.0 4.0 3.0 04/25/18 04/25/18 04/25/18 07:07 08:18 11:51 Temp 97.7 Pulse 61 Resp 24 B/P (MAP) 149/82 (104) Pulse Ox 93 93 O2 Delivery Nasal Cannula Nasal Cannula Nasal Cannula O2 Flow Rate 3.0 3.0 4.0 Intake and Output 04/24/18 04/24/18 04/25/18 15:00 23:00 07:00 Intake Total 380 ml 640 ml Output Total 150 ml 250 ml Balance 230 ml 640 ml -250 ml VIMAL BARTON [employer] Apr 25, 2018 12:31
--- NOTE | 2018-04-25 13:04 | PN ---
DATE: 04/25/2018 SUBJECTIVE: The patient is resting slightly propped up in bed, in no apparent respiratory distress. He is awake, alert, apparently had an episode of chest pain that has responded to GI cocktail. He has had a CT angio, which basically showed pulmonary arteries, no evidence of central embolism. Note that the segmental and subsegmental branches are suboptimally opacified, limiting evaluation. Thoracic aorta showed no evidence of aneurysm or dissection. No lymphadenopathy. The heart size is normal with no evidence of pericardial effusion. Esophagus is unremarkable and pleural spaces, no significant effusion or pneumothorax. The lungs has mild atelectasis and infiltrate in the left lower lobe and to a lesser extent the right lower lobe. Trachea and central airways are patent and upper abdomen evaluation is limited due to the technique and obvious acute finding. The patient has a nuclear stress test, the first was a nuclear stress test and he is going for second one this afternoon and also for an echocardiogram and depending on the finding, he might require cardiac catheterization. PHYSICAL EXAMINATION: GENERAL: When I examined him this afternoon, he was resting slightly propped up in bed, in no apparent respiratory distress. No pallor, jaundice, cyanosis, or thyromegaly. No jugular venous distension. No lower limb edema. VITAL SIGNS: His heart rate was 61, blood pressure 149/82, temperature was 97.7, respiratory rate was 24, and oxygen saturation was 93% on 2 liters of oxygen. HEAD, EYES, EARS, NOSE AND THROAT: Showed normocephalic, atraumatic. NECK: Supple. HEART: Showed normal first and second heart sounds with no gallop, rub, or murmur. CHEST: Clear to auscultation. No crepitation or rhonchi. ABDOMEN: Distended, soft, nontender. NEUROLOGIC: He is awake, alert, responding appropriately. All cranial nerves intact. He moves extremities without difficulty. He is able to walk for short distance with a walker; however, is mostly chair. His intake over the last 24 hours and output are incompletely recorded. LABORATORY DATA: His lab work showed a white cell count of 7800, hemoglobin 16, hematocrit 46, MCV 102, and a platelet count of 189,000. Serum sodium 144, potassium 4, chloride 109, bicarbonate 28, anion gap of 7, BUN 9, creatinine 0.6, estimated GFR was 139 mL per minute. His glucose was 101. Calcium was 8.1, magnesium was 1.7. ASSESSMENT: 1. Chest pain for which the patient has had 3 sets of cardiac enzymes, showed all troponin to be less than 0.017. The patient has no evidence of aortic dissection, no pulmonary emboli, no pneumothorax or pleural effusion, no pericardial effusion. He has had the first half of a nuclear stress test and will have the second half this afternoon as well as an echocardiogram to evaluate left ventricular systolic function. 2. Other medical problems include cerebral palsy. 3. Hemochromatosis. 4. Hypertension. 5. Hyperlipidemia. 6. He has secondary erythrocytosis. PLAN: To continue with current medication including alcohol withdrawal protocol. His hypokalemia has resolved. His potassium has risen from 2.7 to 4. I will discontinue his IV fluid, continue with oral potassium supplement. Await the result of the echocardiogram and stress test. The patient probably needs phlebotomy for his hemochromatosis. SHANDA GIBSON MD DR: JAMEL/lyn JOB#: [id number] / [id number]
--- NOTE | 2018-04-25 14:19 | RAD ---
MR#: [id number] Date of Study: 04/25/2018 Ordering Physician: VIMAL BARTON, Referring Physician: AMA FULLER Tech: DEBI Rowley APPROVED REPORT Test Type: Pharmacological Stress Nurse/Tech: DEBI Rowley Test Indications: Chest pain Cardiac History: hypertension Medications: see EHR Medical History: see EHR Resting Heart Rate: 60 bpm Resting Blood Pressure: 164/93mmHg Pretest Chest Pain: None Nurse/Tech Notes Consent: The procedure was explained to the patient in lay terms. Informed consent was witnessed. Patrice eout was entered into [employer]. History and Stress Test performed by DEBI Rowley Pharm. Details Pharmacologic stress testing was performed using 0.4mg per 5ml of regadenoson given intravenously ove r 7-10 seconds. POST EXERCISE Reason for Termination: Infusion complete Max HR: 101 bpm Max Blood Pressure: 171/94mmHg Blood Pressure response to exercise: Normal blood pressure response during stress. Heart Rate response to exercise: normal response Chest Pain: Yes. 5 out of 10 INTERPRETATION Stress EKG Conclusion: Baseline EKG showed sinus rhythm. No ischemic changes at peak stress. No arr hythmias. Imaging Protocol IMAGE PROTOCOL: Rest Tc-99m/stress Tc-99m 1 day Rest: Stress: Viability: Radiopharm.Tc99m [id number] Sestamibi Dose11.5mCi 34.1mCi Duration 17min. 12min. Img Date 04/25/2018 04/25/2018 Inj-Img [id number]. 60min. Rest Admin Site:IV - Right AntecubitalAdministrator: DEBI Rowley Stress Admin Site: IV - Right AntecubitalAdministrator: DEBI Rowley STRESS DATA End Diast. Vol.128.0mlAv. Heart Rate58.0bpm LVEDV index BSA2.0mlCardiac Output0.1L/min End Syst. Vol.40.0mlCO Index BSA5.1L/min LVESV index BSA1.0mlMyocardial Topf166.0g Eject. Anonxhhs37.0% Stress Rates Pk. Fill Rate2.22EDV/secLVtime Pk. Fill 145.80msec Pk. Empty Rate2.78ESV/secLVtime Pk. Hcesw493.28msec 1/3 Pk. Fill1.69EDV/sec Stress Scores Regional WT0.00Summed WT3.00 Regional WM0.00Summed WM0.00 Study quality was good. Left Ventricular size was Normal at Rest and Stress. The rest and stress images show normal perfusion, normal contraction and thickening. LV Perf. Quant 17 Seg. SSS0.00 17 Seg. SRS0.00 17 Seg. SDS0.00 Stress Defect Extent (% LAD)0.00Rest Defect Extent (% LAD)0.00Rev. Defect Extent (% LAD)0.00 Stress Defect Extent (% LCX) 0.00Rest Defect Extent (% LCX)0.00Rev. Defect Extent (% LCX)0.00 Stress Defect Extent (% RCA)0.00Rest Defect Extent (% RCA)0.00Rev. Defect Extent (% RCA)0.00 Stress Defect Extent (% YFN)0.00Rest Defect Extent (% YFN)0.00Rev. Defect Extent (% YFN)0.00 Conclusion 1. Regadenoson cardioisotope stress test did not show any evidence of ischemia or infarct. 2. Normal left ventricular systolic function with ejection fraction calculated at 69%. 3. Low risk for cardiac events. Signed by : Jt Palmer, Electronically Approved : 04/25/2018 14:18:50
[2018-04-25 15:25] VITALS: BP 154/88
--- NOTE | 2018-04-25 16:12 | CARD ---
MR#: [id number] Date of Study: 04/25/2018 Ordering Physician: SHANDA GIBSON, Referring Physician: SHANDA GIBSON, Tech: CHARANJIT Glass APPROVED REPORT EXAM: Two-dimensional and M-mode echocardiogram with Doppler and color Doppler. Other Information Quality : AverageHR: 70bpm INDICATION Chest Pain 2D DIMENSIONS RVDd3.4 (2.9-3.5cm)Left Atrium(2D)3.3 (1.6-4.0cm) IVSd1.5 (0.7-1.1cm)Aortic Root(2D)3.5 (2.0-3.7cm) LVDd4.2 (3.9-5.9cm)LVOT Diameter2.0 (1.8-2.4cm) PWd1.4 (0.7-1.1cm)LVDs2.7 (2.5-4.0cm) FS (%) 35.9 %SV50.9 ml LVEF(%)65.8 (>50%) Aortic Valve AoV Peak Michael.134.0cm/sAoV VTI29.7cm AO Peak GR.7.2mmHgLVOT Peak Michael.78.6cm/s LVOT VTI 18.85cmAO Mean GR.4mmHg KIRBY (VMAX)1.76cv3SWV (VTI)2.00cm2 Mitral Valve MV E Fmdsecqp73.5cm/sMV DECEL [id number] MV A Pnnbwqfy51.9cm/sE/A Ratio0.9 Pulmonary Valve PV Peak Tftkvykw367.3cm/sPV Peak Grad.5mmHg Tricuspid Valve TR P. Rktpudgl355om/sTR Peak Gr.39mmHg Pulmonary Vein S1 Vxwjhscf53.3cm/sD2 Wvqycfiv56.6cm/s LEFT VENTRICLE The left ventricle is normal size. There is mild to moderate concentric left ventricular hypertrophy. The left ventricular systolic function is normal. The ejection fraction is estimated at 60%. There i s normal LV segmental wall motion. The left ventricular diastolic function and filling is normal for age. RIGHT VENTRICLE The right ventricle is normal size. The right ventricular systolic function is normal. ATRIA The left atrium size is normal. The right atrium size is normal. The interatrial septum is intact wit h no evidence for an atrial septal defect or patent foramen ovale as noted on 2-D or Doppler imaging. AORTIC VALVE The aortic valve is normal in structure and function. Doppler and Color Flow revealed no significant aortic regurgitation. There is no significant aortic valvular stenosis. There is no aortic valvular v egetation. MITRAL VALVE The mitral valve is thickened but opens well. There is no evidence of mitral valve prolapse. There is no mitral valve stenosis. Doppler and Color-flow revealed trace mitral regurgitation. TRICUSPID VALVE The tricuspid valve is normal in structure. Doppler and Color Flow revealed trace to mild tricuspid r egurgitation. There is mild to moderate pulmonary hypertension. The PA pressure was estimated at 44 m mHg. There is no tricuspid valve prolapse or vegetation. There is no tricuspid valve stenosis. PULMONIC VALVE The pulmonic valve is not well visualized. Doppler and Color Flow revealed moderate pulmonic valvular regurgitation. There is no pulmonic valvular stenosis. GREAT VESSELS The aortic root is normal in size. The IVC was not visualized. PERICARDIAL EFFUSION There is no pleural effusion. There is no evidence of significant pericardial effusion. Critical Notification Critical Value: No <Conclusion> The left ventricular systolic function is normal. The ejection fraction is estimated at 60%. There is normal LV segmental wall motion. Trace mitral regurgitation. Trace to mild tricuspid regurgitation. There is mild to moderate pulmonary hypertension. The PA pressure was estimated at 44 mmHg. There is no evidence of significant pericardial effusion. Signed by : Jt Palmer, Electronically Approved : 04/25/2018 16:12:09
[2018-04-26] MEDS ORDERED: ENOXAPARIN 40 MG/0.4 ML SYRINGE. SQ SCH (09:00)
--- NOTE | 2018-04-29 19:04 | DS ---
DATE OF DISCHARGE: 04/25/2018 HISTORY OF PRESENT ILLNESS: The patient is a 57-year-old male patient, who presented to Emergency Room with chest pain that awakened him around 2:00 in the morning. When he woke up it was 5:00, to go to work, he started complaining again of chest pain and basically decided to come to the Emergency Room where he was evaluated. The sublingual nitroglycerin has relieved his chest pain and was admitted to do 2 more sets of cardiac enzyme and to consult the cardiology team. The patient has 3 sets of cardiac enzymes that ruled out myocardial infarction. He has had an echocardiogram, which basically showed that his left ventricular systolic function is normal, ejection fraction is estimated at 60%. There is normal left ventricular segmental wall motion, trace mitral regurgitation, mild tricuspid regurgitation, [id number] pulmonary hypertension. Pulmonary artery pressure was estimated at 44 mmHg. There is no evidence of significant pericardial effusion. The patient has had nuclear stress test, which basically showed that the regadenoson cardiac isotope stress test did not show any evidence of ischemia or infarct. He has normal left ventricular systolic function, ejection fraction calculated at 69%. The study was considered low risk for cardiac event as his D-dimer was high at 3.74. He also underwent CT angio, which basically showed no evidence of pulmonary embolism; however, noted there is suboptimal visualization segmental and subsegmental branches. No infiltrate, atelectasis in the lower lobes and therefore, the patient was discharged home to follow with his primary care physician. PHYSICAL EXAMINATION: GENERAL: On examining him the day of discharge, he looked well and was clearly in no apparent respiratory distress. There was no pallor, jaundice, cyanosis or thyromegaly. No jugular venous distension. No lower limb edema. VITAL SIGNS: His heart rate on the day of discharge was 53, blood pressure 154/88, temperature was 98.1, respiratory rate 24, and oxygen saturation was 94% on 4 liters of oxygen. HEAD, EYES, EARS, NOSE AND THROAT: Showed normocephalic, atraumatic. NECK: Supple. HEART: Showed normal first and second heart sounds with no gallop, rub or murmur. CHEST: Clear to auscultation. No crepitation or rhonchi. ABDOMEN: Distended, soft, nontender. No guarding or rigidity. No organomegaly. All hernial orifice intact. Bowel sounds normal. NEUROLOGIC: The patient is awake, alert, responding appropriately. All cranial nerves intact. He moves extremities without difficulty. He is able to walk for short distance with a walker; however, he is mostly using power chair. His intake on the day of discharge was 1020, output was 400. LABORATORY DATA: Showed a white cell count of 7800, hemoglobin 16, hematocrit 46, MCV 102 and platelet count of 189,000. His serum sodium was 144, potassium 4, chloride 109, bicarbonate 28, anion gap of 7, BUN 9, creatinine 0.6, estimated GFR was 114 mL per minute. His glucose was 101, calcium was 8.1, magnesium was 1.7. Serum ferritin was 613. His serum triglycerides were 76, total cholesterol 172, LDL cholesterol was 99, VLDL was 15 and HDL cholesterol was 58 and the ratio was 20. DISCHARGE MEDICATIONS: He was discharged home to continue on amlodipine besylate 10 mg once a day, Soma 250 mg 4 times a day, hydrocodone/APAP 10/325 one tablet every 6 hours, naproxen 500 mg daily, omeprazole 20 mg daily, polyethylene glycol 17 grams daily, valsartan/hydrochlorothiazide 160/12.5 two tablets once a day at bedtime. FINAL DISCHARGE DIAGNOSES: Chest pain. Note, the patient has had 3 sets of cardiac enzyme, showed old troponin to be less than 0.017. He has no evidence of aortic dissection, no pulmonary emboli, no pneumothorax, pleural effusion or pericardial effusion. Nuclear stress test was also negative and considered low risk for cardiac event. His echocardiogram showed that he has normal left ventricular systolic function, ejection fraction 60%. OTHER MEDICAL PROBLEMS: Include: A. Cerebral palsy. B. Hemochromatosis. C. Hypertension. D. Hyperlipidemia. E. Secondary erythrocytosis. SHANDA GIBSON MD DR: JAMEL/lyn JOB#: [id number] / [id number]
== END 2018-04-25 18:05 | disposition home or self-care (01) ==
LOC: ER 06:28 → 1 SOUTH 07:45 → INTOOBSV 07:45
PROVIDERS: ADMIT Internal Medicine; ATTEND Internal Medicine
DX: R07.9 Chest pain, unspecified (principal); E78.5 Hyperlipidemia, unspecified; E78.00 Pure hypercholesterolemia, unspecified; E83.42 Hypomagnesemia; E83.51 Hypocalcemia; E87.6 Hypokalemia; F10.10 Alcohol abuse, uncomplicated; I16.0 Hypertensive urgency; I10 Essential (primary) hypertension; I25.10 Atherosclerotic heart disease of native coronary artery without angina pectoris; G80.9 Cerebral palsy, unspecified; E83.119 Hemochromatosis, unspecified; D75.1 Secondary polycythemia; Z80.0 Family history of malignant neoplasm of digestive organs; Z90.81 Acquired absence of spleen; Z99.81 Dependence on supplemental oxygen
CPT/HCPCS: 36415; 71045; 71275; 78452; 80048; 80053; 80061; 80307; 81001; 82553; 82728; 83690; 83735; 83880; 84484; 85025; 85379; 85610; 93005; 93017; 93306; 96365; 96366; 96368; 96372; 96374; 96375; 96376; 99285; A9500; G0378; J1650; J2270; J2405; J3475; J3480; Q9967; G0379; G0479

== ENCOUNTER → 2019-05-11 | Outpatient (CLI) | payer OTHER ==
[~2019-05-11] MED LIST changes: +AMLO10TA4 PO; +HYDR-2769 PO; +POLY17PO5 PO
[2019-05-11 14:27] LABS: HEMATOCRIT 50.6 % (39.0-53.0); HEMOGLOBIN 17.9 g/dL (13.0-17.5)
== END | disposition home or self-care (01) ==
LOC: LAB 13:57
PROVIDERS: ATTEND Internal Medicine
DX: E83.119 Hemochromatosis, unspecified (principal)
CPT/HCPCS: 36415; 85014; 85018; 99195

== ENCOUNTER 2020-09-01 11:59 | Emergency (ER) | payer OTHER ==
[~2020-09-01] VITALS: Ht 177.8 cm; Wt 75.9 kg
[~2020-09-01 11:59] MED LIST changes: -VALS1TAB27 PO; +VALS1TAB28 PO
[2020-09-01 12:00] VITALS: BP 180/108
--- NOTE | 2020-09-01 12:28 | PHYS DOC ---
Past History Past Medical History: High Cholesterol, Hypertension, Other Additional Past Medical Histor: cerebral palsy, pulmonary hypertension (HUEY SABILLON APRN) Past Surgical History: Spleenectomy (HUEY SABILLON APRN) Smoking: Non-smoker Alcohol Use: Heavy Drug Use: None (HUEY SABILLON APRN) General Adult EDM: Chief Complaint: BACK PAIN - NO INJURY HPI: HPI: Patient is a 60-year-old male who presents with right-sided lower back pain. Patient has a history of cerebral palsy and chronic back pain. Patient states that this is happened before but it normally gets better within a couple of days of rest. Patient reports that the pain has been continuous for 2 weeks and he was unable to ambulate on his own today and using his cane. Pain is improved with sitting, worsening symptoms with standing. States he took a Soma this morning prior to arrival. Patient has an appointment with his PCP on Tuesday to discuss seeing pain management again. Denies numbness, tingling to extremities. Denies urinary retention or incontinence of bowel. (HUEY SABILLON APRN) Review of Systems: Review of Systems: Constitutional: Denies fever or chills Eyes: Denies change in visual acuity HENT: Denies nasal congestion or sore throat Respiratory: Denies cough or shortness of breath Cardiovascular: Denies chest pain or edema GI: Denies abdominal pain, nausea, vomiting, bloody stools or diarrhea : Denies dysuria Musculoskeletal: Reports right-sided lower back pain Integument: Denies rash Neurologic: Denies headache, focal weakness or sensory changes Endocrine: Denies polyuria or polydipsia Lymphatic: Denies swollen glands Psychiatric: Denies depression or anxiety (HUEY SABILLON APRN) Allergies: Allergies: Allergies Coded Allergies Type Severity Reaction Last Updated Verified No Known Drug Allergies 03/17/15 No (HUEY SABILLON APRN) Physical Exam: PE: Constitutional: Well developed, well nourished, no acute distress, non-toxic appearance. [] HENT: Normocephalic, atraumatic, bilateral external ears normal, oropharynx moist, no oral exudates, nose normal. [] Eyes: PERRLA, EOMI, conjunctiva normal, no discharge. [] Neck: Normal range of motion, no tenderness, supple, no stridor. [] Cardiovascular:Heart rate regular rhythm, no murmur [] Lungs & Thorax: Bilateral breath sounds clear to auscultation [] Abdomen: Bowel sounds normal, soft, no tenderness, no masses, no pulsatile masses. [] Skin: Warm, dry, no erythema, no rash. [] Back: Right-sided lower back tenderness, no CVA tenderness. [] Extremities: No tenderness, no cyanosis, no clubbing, ROM intact, no edema. [] Neurologic: Alert and oriented X 3, normal motor function, normal sensory function, no focal deficits noted. [] Psychologic: Affect normal, judgement normal, mood normal. [] (HUEY SABILLON APRN) Current Patient Data: Vital Signs: Vital Signs Date Time Temp Pulse Resp B/P (MAP) Pulse Ox O2 Delivery O2 Flow Rate FiO2 09/01/20 12:00 97.6 66 18 180/108 (132) 94 Room Air (HUEY SABILLON APRN) EKG: EKG: [] (HUEY SABILLON APRN) Radiology/Procedures: Radiology/Procedures: [] (HUEY SABILLON APRN) Heart Score: Risk Factors: Risk Factors: DM, Current or recent (<one month) smoker, HTN, HLP, family history of CAD, obesity. Risk Scores: Score 0 - 3: 2.5% MACE over next 6 weeks - Discharge Home Score 4 - 6: 20.3% MACE over next 6 weeks - Admit for Clinical Observation Score 7 - 10: 72.7% MACE over next 6 weeks - Early Invasive Strategies (HUEY SABILLON APRN) Course & Med Decision Making: Course & Med Decision Making Pertinent Labs and Imaging studies reviewed. (See chart for details) [60-year-old male presents with right-sided lower back pain. Patient has history of chronic back pain and cerebral palsy. Patient denies numbness and tingling to extremities. Patient denies urinary retention or incontinence of bowl.] Reassessed patients pain. Patient states pain has improved. Will DC to home. Patient to follow up with PCP on Tuesday to discuss restarting pain management.Patient agrees with this plan. (HUEY SABILLON APRN) Dragon Disclaimer: Dragon Disclaimer: This electronic medical record was generated, in whole or in part, using a voice recognition dictation system. (HUEY SABILLON APRN) Departure Departure: Impression: Primary Impression: Chronic back pain Qualified Codes: M54.5 - Low back pain; G89.29 - Other chronic pain Disposition: 01 DC HOME SELF CARE/HOMELESS Condition: GOOD Referrals: JANA SHELTON MD (PCP) Patient Instructions: Back Pain, Adult, [id number] Additional Instructions: Please follow up with your PCP on Tuesday to discuss pain management. EMERGENCY DEPARTMENT GENERAL DISCHARGE INSTRUCTIONS Thank you for coming to [facility] (ED) today and trusting us with you care. We trust that you had a positivie experience in our Emergency Department. If you wish to speak to the department management, you may call the director at [phone]. YOUR FOLLOW UP INSTRUCTIONS ARE FOLLOWS: 1. Do you have a private Doctor? If you do not have a private doctor, please ask for a resource list of physicians or clinics that may be able to assist you with follow up care. 2. The Emergency Physician has interpreted your x-rays. The X-Ray specialist will also review them. If there is a change in the findings, you will be notified in 48 hours when at all possible. 3. A lab test or culture has been done, your results will be reviewed and you will be notified if you need a change in treatment. ADDITIONAL INSTRUCTIONS AND INFORMATION: 1. Your care today has been supervised by a physician who is specially trained in emergency care. Many problems require more than one evaluation for a complete diagnosis and treatment. We recommend that you schedule your follow up appointment as recommended to ensure complete treatment of you illness or injury. If you are unable to obtain follow up care and continue to have a problem, or if your condition worsens, we recommend that you return to the ED. 2. We are not able to safely determine your condition over the phone nor are we able to give sound medical advice over the phone. For these safety reasons, if you call for medical advice we will ask you to come to the ED for further evaluation. 3. If you have any questions regarding these discharge instructions please call the ED at [phone]. SAFETY INFORMATION: In the interest of safety, wellness, and injury prevention; we encourage you to wear your sealbelt, if you smoke; quite smoking, and we encourage family to use a protective helmet for bicycling and other sporting events that present an increased risk for head injury. IF YOUR SYMPTOMS WORSEN OR NEW SYMPTOMS DEVELOP, OR YOU HAVE CONCERNS ABOUT YOUR CONDITION; OR IF YOUR CONDITION WORSENS WHILE YOU ARE WAITING FOR YOUR FOLLOW UP APPOINTMENT; EITHER CONTACT YOUR PRIMARY CARE DOCTOR, THE PHYSICIAN WHOSE NAME AND NUMBER YOU WERE GIVEN, OR RETURN TO THE ED IMMEDIATELY. Scripts Prednisone (PREDNISONE) 20 Mg Tablet 2 TAB PO DAILY for inflammation, #8 TAB Start this medication tomorrow, Sunday 09/02 Prov: HUEY SABILLON APRN 09/01/20 Orphenadrine Citrate (ORPHENADRINE CITRATE) 100 Mg Tablet.er 100 MG PO BID for back pain, #14 TAB.SR Prov: HUEY SABILLON APRN 09/01/20 Hydrocodone Bit/Acetaminophen (HYDROCODONE-APAP 10-325 ) 1 Each Tablet 0.5-1 TAB PO PRN Q4HRS PRN for PAIN, #14 TAB 0 Refills Prov: HUEY SABILLON APRN 09/01/20 Attending Signature Attending Signature I have reviewed the PA/MORNING SHOW [employer]SC[employer] PRODUCER's note and plan of care. I was available for consultation as needed during the patient's visit in the emergency department. I agree with the clinical impression, plan, and disposition. (NORM BLUE DO) HUEY SABILLON APRN Sep 01, 2020 12:28 NORM BLUE DO Sep 02, 2020 05:44
[2020-09-01] MEDS ORDERED: HYDROmorphone PF 2 MG/ML VIAL IM ONE (12:45)
[2020-09-01] MEDS ORDERED: DEXAMETHASONE 4 MG TABLET PO ONE (12:45)
[2020-09-01] MEDS ORDERED: ORPHENADRINE CITRATE 60 MG/2 ML VIAL. IM ONE (12:45)
[2020-09-01] MEDS ORDERED: HYDR-2769 PO (12:59)
[2020-09-01] MEDS ORDERED: ORPH-16 PO (12:59)
[2020-09-01] MEDS ORDERED: PRED20TA PO (12:59)
== END 2020-09-01 13:38 | disposition home or self-care (01) ==
LOC: ER 11:59
DX: G89.29 Other chronic pain (principal); M54.5 Low back pain; G80.9 Cerebral palsy, unspecified; E78.00 Pure hypercholesterolemia, unspecified; I10 Essential (primary) hypertension; F10.20 Alcohol dependence, uncomplicated; Y90.9 Presence of alcohol in blood, level not specified
CPT/HCPCS: 96372; 99284; J1170; J2360; J8540

== ENCOUNTER 2021-03-18 11:33 | Emergency (ER) | payer OTHER ==
[~2021-03-18] VITALS: Ht 177.8 cm; Wt 75.9 kg
[~2021-03-18 11:33] MED LIST changes: +ORPH-16 PO; +PRED20TA PO
[2021-03-18] MEDS ORDERED: METH4TAB2 PO (13:40)
[2021-03-18] MEDS ORDERED: HYDR-2155 PO ×2 (13:40→13:41)
[2021-03-18 13:42] VITALS: BP 166/95
--- NOTE | 2021-03-18 13:42 | PHYS DOC ---
Past History Past Medical History: High Cholesterol, Hypertension, Other Additional Past Medical Histor: cerebral palsy, pulmonary hypertension Past Surgical History: Spleenectomy Smoking: Non-smoker Alcohol Use: None Drug Use: None Adult General Chief Complaint Chief Complaint: BACK PAIN OR INJURY [facility] HPI Patient is a 60-year-old male patient with history of hypertension, high cholesterol, cerebral palsy, chronic low back pain, who presents to the ED today complaining of 7 out of 10 bilateral low back pain, 7 out of 10 left-sided head pain, describes back pain as sharp and intermittent. Denies anything specifically exacerbating or relieving the symptoms, states he tried taking baclofen with no relief. Denies any injuries. Denies any pain radiating to bilateral lower extremities. Denies any loss of bowel/bladder function. Denies any numbness or tingling to bilateral lower extremities. Denies this being the worst headache in his life. He states he has history of similar headaches. Denies any nausea vomiting. Review of Systems Review of Systems Constitutional: Denies fever or chills [] Eyes: Denies change in visual acuity, redness, or eye pain [] HENT: Denies nasal congestion or sore throat [] Respiratory: Denies cough or shortness of breath [] Cardiovascular: No additional information not addressed in HPI [] GI: Denies abdominal pain, nausea, vomiting, bloody stools or diarrhea [] : Denies dysuria or hematuria [] Musculoskeletal: Reports low back pain Integument: Denies rash or skin lesions [] Neurologic: Reports headache, denies focal weakness or sensory changes [] All other systems were reviewed and found to be within normal limits, except as documented in this note. Allergies Allergies Allergies Coded Allergies Type Severity Reaction Last Updated Verified No Known Drug Allergies 03/17/15 No Physical Exam Physical Exam Constitutional: Well developed, well nourished, no acute distress, non-toxic appearance. [] HENT: Normocephalic, atraumatic, bilateral external ears normal, oropharynx moist, no oral exudates, nose normal. [] Eyes: PERRLA, EOMI, conjunctiva normal, no discharge. [] Neck: Normal range of motion, no tenderness, supple, no stridor. [] Cardiovascular:Heart rate regular rhythm, no murmur [] Lungs & Thorax: Bilateral breath sounds clear to auscultation [] Abdomen: Bowel sounds normal, soft, no tenderness, no masses, no pulsatile masses. [] Skin: Warm, dry, no erythema, no rash. [] Back: No tenderness, no CVA tenderness. [] Extremities: No tenderness, no cyanosis, no clubbing, ROM intact, no edema. [] Neurologic: Alert and oriented X 3, normal motor function, normal sensory funct ion, no focal deficits noted. Cranial nerves II through XII intact Psychologic: Affect normal, judgement normal, mood normal. [] Current Patient Data Vital Signs Vital Signs Date Time Temp Pulse Resp B/P (MAP) Pulse Ox O2 Delivery O2 Flow Rate FiO2 03/18/21 11:35 98.2 78 16 159/96 92 Room Air EKG EKG [] Radiology/Procedures Radiology/Procedures [] Heart Score C/O Chest Pain: N/A Risk Factors: Risk Factors: DM, Current or recent (<one month) smoker, HTN, HLP, family history of CAD, obesity. Risk Scores: Risk Factors: DM, Current or recent (<one month) smoker, HTN, HLP, family history of CAD, obesity. Course & Med Decision Making Course & Med Decision Making Pertinent Labs and Imaging studies reviewed. (See chart for details) This is a 60-year-old male patient presented to the ED today complaining of chronic low back pain and chronic left-sided headache. There is nothing acute about his symptoms today. No cauda equina syndrome symptoms. t Shaista Disclaimer Dragon Disclaimer This electronic medical record was generated, in whole or in part, using a voice recognition dictation system. Departure Departure: Impression: Primary Impression: Chronic back pain Additional Impression: Headache Disposition: 01 HOME / SELF CARE / HOMELESS Condition: STABLE Referrals: JANA SHELTON MD (PCP) follow up in one week Patient Instructions: Back Pain, Adult, Headache, FAQs Additional Instructions: Please follow-up with your primary care doctor and urologist in the next 7 days. Take the prescribed medications as ordered. Consider using a heating pad to your low back Scripts Hydrocodone Bit/Acetaminophen (HYDROCODONE-APAP 5-325 ) 1 Each Tablet 1 TAB PO PRN Q6HRS PRN for PAIN, #10 TAB 0 Refills Prov: SILVA LEARY HOME WORKER 03/18/21 Methylprednisolone (MEDROL) 4 Mg Tab.ds.pk 1 PKG PO UD, #1 PKG Prov: SILVA LEARY HOME WORKER 03/18/21 Problem Qualifiers Primary Impression: Chronic back pain Back pain location: low back pain Back pain laterality: bilateral Sciatica presence: without sciatica Qualified Codes: M54.5 - Low back pain; G89.29 - Other chronic pain Additional Impression: Headache Headache type: unspecified Headache chronicity pattern: unspecified pattern Intractability: not intractable Qualified Codes: R51.9 - Headache, unspecified SILVA LEARY HOME WORKER Mar 18, 2021 13:42
[2021-03-18] MEDS ORDERED: GABAPENTIN 100 MG CAPSULE. PO ONE (13:45)
== END 2021-03-18 13:54 | disposition home or self-care (01) ==
LOC: ER 11:33
DX: M54.42 Lumbago with sciatica, left side (principal); R51.9 Headache, unspecified; I10 Essential (primary) hypertension; E78.5 Hyperlipidemia, unspecified
CPT/HCPCS: 99283

== ENCOUNTER 2021-09-14 13:22 | Emergency (ER) | payer OTHER ==
[~2021-09-14] VITALS: Ht 175.3 cm; Wt 73.0 kg
[~2021-09-14 13:22] MED LIST changes: +HYDR-2155 PO; +METH4TAB2 PO
--- NOTE | 2021-09-14 13:53 | EKG ---
[address] [address] Test Date: 2021-09-14 Test Time: 13:37:51 Pat Name: FE ESPANA Department: Room: Gender: M Dental Chairside Assistant: : [id number] Requested By: ROMARIO CABRERA Order Number: [id number] Reading MD: Measurements Intervals [place] Rate: P: KS: QRS: QRSD: T: QT: QTc: Interpretive Statements
[2021-09-14 14:07] LABS: BASO # 0.1 x10^3/uL (0.0-0.2); BASO % 1 % (0-3); EOS # 0.3 x10^3/uL (0.0-0.7); EOS % 3 % (0-3); HEMOGLOBIN 16.9 g/dL (13.0-17.5); LYMPH # 4.4 x10^3/uL (1.0-4.8); LYMPH % 43 % (24-48); MEAN CORPUSCULAR HEMOGLOBIN 35 pg (25-35); MEAN CORPUSCULAR HGB CONC 35 g/dL (31-37); MEAN CORPUSCULAR VOLUME 99 fL (79-100); MONO # 1.4 x10^3/uL (0.0-1.1); MONO % 14 % (0-9); NEUT # 4.1 x10^3uL (1.8-7.7); NEUT % 40 % (31-73); PLATELET COUNT 198 x10^3/uL (140-400); RED BLOOD COUNT 4.86 x10^6/uL (4.30-5.70); RED CELL DISTRIBUTION WIDTH 13.8 % (11.5-14.5); WHITE BLOOD COUNT 10.3 x10^3/uL (4.0-11.0)
[2021-09-14 14:17] LABS: CALCIUM 8.5 mg/dL (8.5-10.1); CREATININE 0.7 mg/dL (0.7-1.3); GFR 114.6; POTASSIUM 3.4 mmol/L (3.5-5.1)
[2021-09-14 14:27] LABS: ALBUMIN 3.8 g/dL (3.4-5.0); ALBUMIN/GLOBULIN RATIO 1.1 (1.0-1.7); TOTAL BILIRUBIN 1.7 mg/dL (0.2-1.0); TOTAL PROTEIN 7.3 g/dL (6.4-8.2)
--- NOTE | 2021-09-14 14:56 | PHYS DOC ---
Past History Past Medical History: High Cholesterol, Hypertension, Other Additional Past Medical Histor: cerebral palsy, pulmonary hypertension (ROMARIO CABRERA APRN) Past Surgical History: Spleenectomy (ROMARIO CABRERA APRN) Smoking: Non-smoker Alcohol Use: None Drug Use: None (ROMARIO CABRERA APRN) General Adult EDM: Chief Complaint: CHEST PAIN HPI: HPI: Patient is a 61-year-old male who presents to the emergency department for left- sided chest pain that started 230 this morning when he woke up. He states it feels like something sitting on his chest and a pressure pain. He rates it 7 out of 10. Is worse with movement and palpation. Patient reports that when the chest pain occurs he does have shortness of breath. Patient reports that he has a history of this chest pain. He denies any nausea, vomiting, cough, fever. (ROMARIO CABRERA APRN) Review of Systems: Review of Systems: Constitutional: See HPI Respiratory: HPI Cardiovascular: HPI GI: See HPI (ROMARIO CABRERA APRN) Allergies: Allergies: Allergies Coded Allergies Type Severity Reaction Last Updated Verified No Known Drug Allergies 03/17/15 No (ROMARIO CABRERA APRN) Physical Exam: PE: Constitutional: Well developed, well nourished, no acute distress, non-toxic appearance. [] HENT: Normocephalic, atraumatic, bilateral external ears normal, oropharynx moist, no oral exudates, nose normal. [] Eyes: PERRL, EOMI, conjunctiva normal, no discharge. [] Neck: Normal range of motion, no tenderness, supple, no stridor. [] Cardiovascular:Heart rate regular rhythm, no murmur, chest pain reproducible with palpation [] Lungs & Thorax: Bilateral breath sounds clear to auscultation [] Abdomen: Bowel sounds normal, soft, no tenderness, no masses, no pulsatile masses. [] Skin: Warm, dry, no erythema, no rash. [] Back: Normal range of motion Extremities: No tenderness, no cyanosis, no clubbing, ROM intact, no edema. [] Neurologic: Alert and oriented X 3, normal motor function, normal sensory function, no focal deficits noted. [] Psychologic: Affect normal, judgement normal, mood normal. [] (ROMARIO CABRERA APRN) Current Patient Data: Labs: Laboratory Tests Test 09/14/21 13:49 White Blood Count 10.3 x10^3/uL (4.0-11.0) Red Blood Count 4.86 x10^6/uL (4.30-5.70) Hemoglobin 16.9 g/dL (13.0-17.5) Hematocrit 48.0 % (39.0-53.0) Mean Corpuscular Volume 99 fL (79-100) Mean Corpuscular Hemoglobin 35 pg (25-35) Mean Corpuscular Hemoglobin Concent 35 g/dL (31-37) Red Cell Distribution Width 13.8 % (11.5-14.5) Platelet Count 198 x10^3/uL (140-400) Neutrophils (%) (Auto) 40 % (31-73) Lymphocytes (%) (Auto) 43 % (24-48) Monocytes (%) (Auto) 14 % (0-9) H Eosinophils (%) (Auto) 3 % (0-3) Basophils (%) (Auto) 1 % (0-3) Neutrophils # (Auto) 4.1 x10^3uL (1.8-7.7) Lymphocytes # (Auto) 4.4 x10^3/uL (1.0-4.8) Monocytes # (Auto) 1.4 x10^3/uL (0.0-1.1) H Eosinophils # (Auto) 0.3 x10^3/uL (0.0-0.7) Basophils # (Auto) 0.1 x10^3/uL (0.0-0.2) Sodium Level 141 mmol/L (136-145) Potassium Level 3.4 mmol/L (3.5-5.1) L Chloride Level 104 mmol/L (98-107) Carbon Dioxide Level 25 mmol/L (21-32) Anion Gap 12 (6-14) Blood Urea Nitrogen 12 mg/dL (8-26) Creatinine 0.7 mg/dL (0.7-1.3) Estimated GFR (Cockcroft-Gault) 114.6 BUN/Creatinine Ratio 17 (6-20) Glucose Level 111 mg/dL (70-99) H Calcium Level 8.5 mg/dL (8.5-10.1) Total Bilirubin 1.7 mg/dL (0.2-1.0) H Aspartate Amino Transferase (AST) 43 U/L (15-37) H Alanine Aminotransferase (ALT) 47 U/L (16-63) Alkaline Phosphatase 62 U/L (46-116) Troponin I High Sensitivity 7 ng/L (4-75) Total Protein 7.3 g/dL (6.4-8.2) Albumin 3.8 g/dL (3.4-5.0) Albumin/Globulin Ratio 1.1 (1.0-1.7) Vital Signs: Vital Signs Date Time Temp Pulse Resp B/P (MAP) Pulse Ox O2 Delivery O2 Flow Rate FiO2 09/14/21 13:28 99.2 78 18 183/114 (137) 92 Room Air (ROMARIO CABRERA APRN) EKG: EKG: EKG performed by ER staff at 1337 shows sinus rhythm with a rate of 75, QTC of 418, no STEMI read by Dr. Weinberg at 1340. [] (ROMARIO CABRERA APRN) Radiology/Procedures: Radiology/Procedures: []PROCEDURE: PORTABLE CHEST 1V EXAM: Chest, single view. HISTORY: Chest pain. COMPARISON: 04/24/2018 FINDINGS: A frontal view of the chest is obtained. There aren't stable chronic a ppearing interstitial changes. There is no consolidation, pleural effusion or pneumothorax. There is a stable cardiac silhouette. IMPRESSION: Chronic appearing interstitial changes. Electronically signed by: Airam Whaley MD (09/14/2021 3:02 PM) [id number] DICTATED AND SIGNED BY: AIRAM WHALEY MD DATE: 09/14/21 1502 CC: JANA SHELTON MD; ROMARIO CABRERA APRN ~MTH0 0 (ROMARIO CABRERA APRN) Heart Score: C/O Chest Pain: Yes HEART Score for Chest Pain: HEART Score for Chest Pain Response (Comments) Value History Moderately Suspicious 1 ECG Normal 0 Age >45 - < 65 1 Risk Factors 1 or 2 Risk Factors 1 Troponin < Normal Limit 0 Total 3 Risk Factors: Risk Factors: DM, Current or recent (<one month) smoker, HTN, HLP, family history of CAD, obesity. Risk Scores: Score 0 - 3: 2.5% MACE over next 6 weeks - Discharge Home Score 4 - 6: 20.3% MACE over next 6 weeks - Admit for Clinical Observation Score 7 - 10: 72.7% MACE over next 6 weeks - Early Invasive Strategies (ROMARIO CABRERA APRN) Course & Med Decision Making: Course & Med Decision Making Pertinent Labs and Imaging studies reviewed. (See chart for details) [] Patient presents the emergency department for left-sided chest pain that started this morning at 230. Patient reports that he has a history of chest pain. Work-up in the ER consisted of blood work, EKG and chest x-ray. Patient's blood work was unremarkable, he was noted to have hypokalemia and this was replaced in the emergency department. His heart score is 3. Patient has a history of hypertension hyperlipidemia and he is 61 years old. Patient was treated with aspirin and pain medication, he reports improvement in his chest pain following. I discussed with patient all findings and diagnostic testing as well as the need to follow-up with PCP for further evaluation and treatment or return to the ER if any new or worsening symptoms. Strict return precautions were also discussed at length. Patient voiced understanding and agreement with the plan. Patient is hemodynamically stable at the time of disposition. (ROMARIO CABRERA APRN) Dragon Disclaimer: Dragon Disclaimer: This electronic medical record was generated, in whole or in part, using a voice recognition dictation system. (ROMARIO CABRERA APRN) Attending Co-Sign The patient was seen and interviewed as well as examined at the bedside. The chart was reviewed. The case was discussed. Agree with the plan of care. (ELEAZAR WEINBERG DO) Departure Departure: Impression: Primary Impression: Atypical chest pain Disposition: HOME / SELF CARE / HOMELESS Condition: GOOD Referrals: JANA SHELTON MD (PCP) Patient Instructions: Chest Pain (Nonspecific) Additional Instructions: You were seen in the emergency department today for chest pain. Your work-up in the ER was unremarkable. At this time, it does not appear that you are experiencing acute coronary syndrome. However, if you continue to have chest pain or have worsening of your chest pain you need to be reevaluated in the emergency department. Please follow-up with your primary care provider tomorrow regarding your ER visit. Please return to the emergency department if you have worsening of your chest pain, shortness of breath, high fevers refractory to treatment, intractable nausea or vomiting, palpitations. ROMARIO CABRERA APRN Sep 14, 2021 14:56 ELEAZAR WEINBERG DO Sep 15, 2021 08:28
[2021-09-14] MEDS ORDERED: ASPIRIN CHEWABLE 81 MG TABLET. PO ONE (15:00)
[2021-09-14] MEDS ORDERED: POTASSIUM CHLORIDE 20 MEQ TABLET.ER. PO ONE (15:00)
--- NOTE | 2021-09-14 15:05 | RAD ---
EXAM: Chest, single view. HISTORY: Chest pain. COMPARISON: 04/24/2018 FINDINGS: A frontal view of the chest is obtained. There aren't stable chronic appearing interstitial changes. There is no consolidation, pleural effusion or pneumothorax. There is a stable cardiac silh ouette. IMPRESSION: Chronic appearing interstitial changes. Electronically signed by: Airam Main MD (09/14/2021 3:02 PM) [id number]
[2021-09-14 16:22] VITALS: BP 152/87
== END 2021-09-14 16:58 | disposition home or self-care (01) ==
LOC: ER 13:22
DX: R07.89 Other chest pain (principal); R06.02 Shortness of breath; E78.00 Pure hypercholesterolemia, unspecified; I10 Essential (primary) hypertension
CPT/HCPCS: 36415; 71045; 80053; 84484; 85025; 93005; 96374; 96376; 99285; J3010

== ENCOUNTER 2021-11-08 16:50 | Emergency (ER) | payer OTHER ==
[~2021-11-08] VITALS: Ht 175.3 cm; Wt 73.0 kg
[2021-11-08] MEDS: MAGNESIUM SULFATE 2GM 50 ML IV SCH ×2 (00:50→20:15)
--- NOTE | 2021-11-08 17:04 | PHYS DOC ---
Past History Past Medical History: High Cholesterol, Hypertension, Other Additional Past Medical Histor: cerebral palsy, pulmonary hypertension (ELEAZAR WEINBERG DO) Past Surgical History: Spleenectomy (ELEAZAR WEINBERG DO) Smoking: Non-smoker Alcohol Use: None Drug Use: None (ELEAZAR WEINBERG DO) General Adult EDM: Chief Complaint: WEAKNESS/GENERALIZED HPI: HPI: 61-year-old male presents via EMS as a code stroke. The patient was reported to have a sudden severe headache at 1625. He also had blurred vision of the right eye. Family immediately called EMS. He denies any other focal deficits or weakness. After coming out of the CT suite, patient tells me that the blurry vision is gone but he still has the right-sided headache. It is somewhat less severe than it was. Patient has cerebral palsy at baseline. Family member accompanies him and states that his current speech is normal for him. (ELEAZAR WEINBERG DO) Review of Systems: Review of Systems: Constitutional: Denies fever or chills Eyes: blurry vision right eye HENT: Denies nasal congestion or sore throat Respiratory: Denies cough or shortness of breath Cardiovascular: Denies chest pain or edema GI: Denies abdominal pain, nausea, vomiting, bloody stools or diarrhea : Denies dysuria Musculoskeletal: Denies back pain or joint pain Integument: Denies rash Neurologic: Headache. Denies focal weakness or sensory changes Endocrine: Denies polyuria or polydipsia Lymphatic: Denies swollen glands Psychiatric: Denies depression or anxiety (ELEAZAR WEINBERG DO) Allergies: Allergies: Allergies Coded Allergies Type Severity Reaction Last Updated Verified No Known Drug Allergies 03/17/15 No (ELEAZAR WEINBERG DO) Physical Exam: PE: Constitutional: Well developed, well nourished, no acute distress, non-toxic appearance. [] HENT: Normocephalic, atraumatic, bilateral external ears normal, oropharynx moist, no oral exudates, nose normal. [] Eyes: PERRLA, EOMI, conjunctiva normal, no discharge. [] Neck: Normal range of motion, no tenderness, supple, no stridor. [] Cardiovascular: Heart rate regular rhythm, no murmur [] Lungs & Thorax: Bilateral breath sounds clear to auscultation [] Abdomen: Bowel sounds normal, soft, no tenderness, no masses, no pulsatile masses. [] Skin: Warm, dry, no erythema, no rash. [] Back: No tenderness, no CVA tenderness. [] Extremities: No tenderness, no cyanosis, no clubbing, ROM intact, no edema. [] Neurologic: Alert and oriented X 3, See NIHSS [] Psychologic: Affect normal, judgement normal, mood normal. [] (ELEAZAR WEINBERG DO) EKG: EKG: [] (ELEAZAR WEINBERG DO) Radiology/Procedures: Radiology/Procedures: [] Impressions: EXAM: CTA HEAD AND NECK W/WO CONTRAST DATE: 11/08/2021 5:03 PM INDICATION: Reason: sudden severe headache, vision change / Spl. Instructions: OMNI 350 100ML IV / History: TECHNIQUE: CTA angiogram of the head and neck was obtained after IV bolus administration of 75 cc of Isovue-370. The images were sent to workstation and multiplanar reconstructions were obtained. Multiplanar reconstruction images to include MIP and 3-D reconstruction images are submitted. One or more of the following dose reduction techniques were utilized: Automated exposure control (AEC), Adjustment of mA and/or kV according to patient size, Use of iterative reconstruction technique such as ASiR, CT scan done according to ALARA and image gently/image wisely COMPARISON: None. FINDINGS: CTA Head: The vertex is excluded from the [id number]. Limiting evaluation of the superior sagittal sinus. The remaining portions of the dural venous sinuses are patent. The visualized distal internal carotid arteries, anterior and middle cerebral arteries are patent and normal caliber. The distal vertebral arteries, basilar artery, and posterior cerebral arteries are patent and normal caliber. No aneurysm or arteriovenous malformation is seen. CTA Neck: Right carotid: The right common carotid artery is patent and normal caliber. The carotid bifurcation is normal. No stenosis of the right internal carotid artery per NASCET criteria. The right external carotid artery is patent. Left carotid: The left common carotid artery is patent and normal caliber. The carotid bifurcation is normal. No stenosis of the left internal carotid artery per NASCET criteria. The left external carotid artery is patent. Right vertebral: The right vertebral artery tortuous but patent and normal caliber. Left vertebral: The left vertebral artery tortuous but patent and normal caliber. The visualized portions of the aortic arch are normal. The origins of the brachiocephalic and subclavian arteries are normal. No cervical lymphadenopathy. The thyroid gland is normal. The parotid and submandibular glands are normal. The visualized aerodigestive tract is unremarkable. The cervical spine is normal. The visualized portions of the lungs are clear. IMPRESSION: 1. No aneurysm. No intracranial stenosis or occlusion. 2. No hemodynamically significant stenosis of the cervical carotid or vertebral arteries. PQRS Compliance Statement - Stenosis calculations for CT, MR and conventional angiography are based upon measurement of the distal ICA diameter in accordance with the NASCET methodology. Electronically signed by: Lizette Joaquin DO (11/08/2021 5:23 PM) [facility] DICTATED AND SIGNED BY: LIZETTE JOAQUIN DO DATE: 11/08/21 171 CC: ELEAZAR WEINBERG DO; JANA SHELTON MD ~MTH0 0 EXAMINATION: CT head without IV contrast INDICATION:61 years, Male, vision change. COMPARISON: None TECHNIQUE: Spiral acquisition of contiguous images from the skull base to the vertex were obtained. Sagittal and coronal 2D reformatted series were provided by the technologist. Soft tissue and bone window algorithms were reviewed. Exposure: One or more of the following individualized dose reduction techniques were utilized for this examination: 1. Automated exposure control 2. Adjustment of the mA and/or kV according to patient size 3. Use of iterative reconstruction technique. FINDINGS: Neither mass, midline shift, intracranial hemorrhage, acute/subacute ischemic changes, nor extraaxial fluid collections are seen. The brain parenchyma is normal in appearance. The ventricles are normal in size. The paranasal sinuses, mastoid air cells, and middle ears are clear. The orbital contents appear within normal limits. Review of bone windows reveals no acute osseous process. IMPRESSION: No evidence of acute intracranial abnormality. These findings were discussed with Dr. Weinberg at 11/08/2021 5:[address] Joaquin Electronically signed by: Lizette Joaquin DO (11/08/2021 5:05 PM) [facility] DICTATED AND SIGNED BY: LIZETTE JOAQUIN DO DATE: 11/08/21 170 CC: ELEAZAR WEINBERG DO; JANA SHELTON MD ~MTH0 0 (ELEAZAR WEINBERG DO) Heart Score: C/O Chest Pain: N/A Risk Factors: Risk Factors: DM, Current or recent (<one month) smoker, HTN, HLP, family his tory of CAD, obesity. Risk Scores: Score 0 - 3: 2.5% MACE over next 6 weeks - Discharge Home Score 4 - 6: 20.3% MACE over next 6 weeks - Admit for Clinical Observation Score 7 - 10: 72.7% MACE over next 6 weeks - Early Invasive Strategies (ELEAZAR WEINBERG DO) Course & Med Decision Making: Course & Med Decision Making Pertinent Labs and Imaging studies reviewed. (See chart for details) The patient CT and CT angiogram were negative for acute findings. The patient has several abnormal lab findings. See labs for more details. Anion gap is 20. Blood sugars 49's we will give some dextrose. We will also give the patient a liter normal saline. Some of his labs are still pending. For his headache, given 30 mg of Toradol, 35 mcg of fentanyl, 10 mg Reglan, 25 mg of Benadryl. I am signing the patient out to the date night sitter for further management and disposition. [] (ELEAZAR WEINBREG DO) Course & Med Decision Making Patient care handed off to me at checkout pending further evaluation and disposition. Patient awake and alert with a normal NIH. Hypoglycemia corrected. Vital signs normal for mild hypertension, hypoxemia on room air placed on a couple liters nasal cannula to correct. CT of the head with CTA of the head and neck not concerning. However work-up suspicious for sepsis given metabolic acidemia likely secondary to at least lactic acidosis and probable or possible uremic acidosis. Cultures obtained. Started on antibiotics. Given dose of steroids. Chest x-ray suspicious for pneumonia. Significant hypomagnesemia, and hypocalcemia. Replaced both. Continued on IV fluid resuscitation. Discussed findings with patient recommended admission. Discussed patient with Dr. Ghotra at [facility] who accepted for continued management of sepsis with associated electrolyte abnormalities. (EDWARDO GARCÍA MD) Dragon Disclaimer: Dragon Disclaimer: This electronic medical record was generated, in whole or in part, using a voice recognition dictation system. (ELEAZAR WEINBERG DO) NIH Stroke Scale: NIH Stroke Scale Response (Comments) Value Level of Consciousness: 0 Alert/Responsive 0 LOC Questions: 0 Answers both correctly 0 LOC Commands: 0 Performs both tasks 0 Best Gaze: 0 Normal 0 Visual: 0 No visual loss 0 Facial Palsy: 0 Normal, symmetrical 0 Motor - Left Arm 0 No drift 0 Motor - Right Arm 0 No drift 0 Motor - Left Leg 0 No drift 0 Motor: Right Leg 0 No drift 0 Limb Ataxia: 0 Absent 0 Sensory: 0 No loss 0 Best Language: 0 Normal 0 Dysathria: 0 Normal 0 Extinction and Inattention: 0 Normal 0 Total 0 Departure Departure: Referrals: JANA SHELTON MD (PCP) ELEAZAR WEINBERG DO Nov 08, 2021 17:03 EDWARDO GARCÍA MD Nov 08, 2021 21:05
--- NOTE | 2021-11-08 17:08 | RAD ---
EXAMINATION: CT head without IV contrast INDICATION:61 years, Male, vision change. COMPARISON: None TECHNIQUE: Spiral acquisition of contiguous images from the skull base to the vertex were obtained. S agittal and coronal 2D reformatted series were provided by the technologist. Soft tissue and bone win evgeny algorithms were reviewed. Exposure: One or more of the following individualized dose reduction techniques were utilized for thi s examination: 1. Automated exposure control 2. Adjustment of the mA and/or kV according to patient size 3. Use of iterative reconstruction technique. FINDINGS: Neither mass, midline shift, intracranial hemorrhage, acute/subacute ischemic changes, nor extraaxial fluid collections are seen. The brain parenchyma is normal in appearance. The ventricles are normal in size. The paranasal sinuses, mastoid air cells, and middle ears are clear. The orbital contents appear within normal limits. Review of bone windows reveals no acute osseous pro cess. IMPRESSION: No evidence of acute intracranial abnormality. These findings were discussed with Dr. Oden at 11/08/2021 5:[address] Joaquin Electronically signed by: Umesh Joaquin DO (11/08/2021 5:05 PM) [facility]
[2021-11-08 17:21] LABS: BASO # 0.1 x10^3/uL (0.0-0.2); BASO % 1 % (0-3); EOS # 0.2 x10^3/uL (0.0-0.7); EOS % 2 % (0-3); HEMATOCRIT 49.1 % (39.0-53.0); HEMOGLOBIN 16.9 g/dL (13.0-17.5); LYMPH # 5.4 x10^3/uL (1.0-4.8); LYMPH % 55 % (24-48); MEAN CORPUSCULAR HEMOGLOBIN 35 pg (25-35); MEAN CORPUSCULAR HGB CONC 35 g/dL (31-37); MEAN CORPUSCULAR VOLUME 102 fL (79-100); MONO # 1.3 x10^3/uL (0.0-1.1); MONO % 13 % (0-9); NEUT # 2.8 x10^3uL (1.8-7.7); NEUT % 29 % (31-73); PLATELET COUNT 183 x10^3/uL (140-400); RED BLOOD COUNT 4.82 x10^6/uL (4.30-5.70); RED CELL DISTRIBUTION WIDTH 14.2 % (11.5-14.5); WHITE BLOOD COUNT 9.7 x10^3/uL (4.0-11.0)
--- NOTE | 2021-11-08 17:25 | RAD ---
EXAM: CTA HEAD AND NECK W/WO CONTRAST DATE: 11/08/2021 5:03 PM INDICATION: Reason: sudden severe headache, vision change / Spl. Instructions: OMNI 350 100ML IV / H istory: TECHNIQUE: CTA angiogram of the head and neck was obtained after IV bolus administration of 75 cc of Isovue-370. The images were sent to workstation and multiplanar reconstructions were obtained. Multi planar reconstruction images to include MIP and 3-D reconstruction images are submitted. One or more of the following dose reduction techniques were utilized: Automated exposure control (AEC ), Adjustment of mA and/or kV according to patient size, Use of iterative reconstruction technique cortes ch as ASiR, CT scan done according to ALARA and image gently/image wisely COMPARISON: None. FINDINGS: CTA Head: The vertex is excluded from the [id number]. Limiting evaluation of the superior sagittal sinus. The remaining portions of the dural venous sinuses are patent. The visualized distal internal carotid arteries, anterior and middle cerebral arteries are patent and normal caliber. The distal ve rtebral arteries, basilar artery, and posterior cerebral arteries are patent and normal caliber. No a neurysm or arteriovenous malformation is seen. CTA Neck: Right carotid: The right common carotid artery is patent and normal caliber. The carotid bifurcation is normal. No stenosis of the right internal carotid artery per NASCET criteria. The right external c arotid artery is patent. Left carotid: The left common carotid artery is patent and normal caliber. The carotid bifurcation is normal. No stenosis of the left internal carotid artery per NASCET criteria. The left external carot id artery is patent. Right vertebral: The right vertebral artery tortuous but patent and normal caliber. Left vertebral: The left vertebral artery tortuous but patent and normal caliber. The visualized portions of the aortic arch are normal. The origins of the brachiocephalic and subclav marek arteries are normal. No cervical lymphadenopathy. The thyroid gland is normal. The parotid and submandibular glands are no rmal. The visualized aerodigestive tract is unremarkable. The cervical spine is normal. The visualized portions of the lungs are clear. IMPRESSION: 1. No aneurysm. No intracranial stenosis or occlusion. 2. No hemodynamically significant stenosis of the cervical carotid or vertebral arteries. PQRS Compliance Statement - Stenosis calculations for CT, MR and conventional angiography are based u leila measurement of the distal ICA diameter in accordance with the NASCET methodology. Electronically signed by: Umesh Joaquin DO (11/08/2021 5:23 PM) [facility]
--- NOTE | 2021-11-08 17:31 | EKG ---
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
[2021-11-08 17:43] LABS: ALBUMIN 1.2 g/dL (3.4-5.0); ALBUMIN/GLOBULIN RATIO 0.8 (1.0-1.7); ALK PHOS 22 U/L (46-116); ALT (SGPT) 15 U/L (16-63); ANION GAP 20 (6-14); AST (SGOT) 22 U/L (15-37); BLOOD UREA NITROGEN 3 mg/dL (8-26); CALCIUM 6.6 mg/dL (8.5-10.1); CHLORIDE 106 mmol/L (98-107); GLUCOSE 49 mg/dL (70-99); POTASSIUM 4.1 mmol/L (3.5-5.1); SODIUM 137 mmol/L (136-145); TOTAL BILIRUBIN 0.5 mg/dL (0.2-1.0); TOTAL PROTEIN 2.7 g/dL (6.4-8.2)
[2021-11-08 17:44] LABS: BUN/CREATININE RATIO 15 (6-20); CREATININE < 0.2 mg/dL (0.7-1.3); GFR > 300.0
[2021-11-08 17:45] LABS: CARBON DIOXIDE 11 mmol/L (21-32)
[2021-11-08] MEDS ORDERED: diphenhydrAMINE 50 MG/ML VIAL IVP ONE ×2 (17:45→23:45)
[2021-11-08] MEDS ORDERED: KETOROLAC 30 MG/ML VIAL. IVP ONE (17:45)
[2021-11-08] MEDS ORDERED: METOCLOPRAMIDE HCL 10 MG/2 ML VIAL. IVP ONE (17:45)
[2021-11-08] MEDS ORDERED: IV NORMAL SALINE 1,000ML 1,000 ML IV ONE (18:00)
[2021-11-08] MEDS ORDERED: DEXTROSE 25% 10 ML DISP.SYRIN. IV ONE (18:00)
[2021-11-08 18:03] LABS: BACTERIA,URINE 0 /HPF (0-FEW); CLARITY,URINE CLEAR; COLOR,URINE YELLOW; GLUCOSE,URINE NEG (NEG); NITRITE,URINE NEG (NEG); RBC,URINE 0 /HPF (0-2); UROBILINOGEN,URINE 0.2 mg/dL (0.2 mg/dL); WBC,URINE 0 /HPF (0-4)
[2021-11-08] MEDS ORDERED: DEXTROSE 50% 25 GM / 50ML DISP.SYRIN. IV ONE (18:07)
[2021-11-08] MEDS ORDERED: IV RINGERS SOLUTION,LACTATED 1,000 ML IV ONE (19:00)
[2021-11-08] MEDS ORDERED: MAGNESIUM SULFATE 2GM 100 ML IV ONE (20:14)
[2021-11-08] MEDS ORDERED: DEXAMETHASONE SOD PHOS 10 MG/ML VIAL. ONE (20:14)
[2021-11-08] MEDS ORDERED: SODIUM BICARBONATE IVF 150 MEQ in IV DEXTROSE 5% 1,000 ML IV ONE (20:15)
[2021-11-08] MEDS ORDERED: DEXAMETHASONE 4 MG TABLET PO ONE (20:15)
[2021-11-08] MEDS ORDERED: SODIUM BICARB ADULT 8.4% 50 MEQ/50 ML DISP.SYRIN. ONE (20:25)
--- NOTE | 2021-11-08 20:25 | RAD ---
Exam Date: 11/08/2021 6:54 PM XR CHEST 1V Indication: Reason: AMS / Spl. Instructions: / History: . Comparison: September 14, 2021 FINDINGS/ IMPRESSION: Right basilar scarring and/or atelectasis persists. The cardiac silhouette and pulmonary vasculature are within normal limits. There is no focal consolidation, pleural effusion or pneumothorax. Electronically signed by: Gerson Giron MD (11/08/2021 8:23 PM) [id number]
[2021-11-08] MEDS ORDERED: CALCIUM GLUCONATE 1,000 MG/10 ML VIAL IV ONE (21:15)
--- NOTE | 2021-11-08 21:39 | RAD ---
Exam: CT of chest without contrast INDICATION: Hypoxemia TECHNIQUE: Sequential axial images through the chest obtained without IV contrast. Sagittal and coron al reformatted images were reconstructed from the axial data and reviewed. Exposure: One or more of the following in the visualized dose reduction techniques were utilized for this examination: 1. Automated exposure control 2. Adjustment of the MA and/or KV according to patient size 3. Use of iterative of reconstructive technique Comparisons: Chest x-ray same day FINDINGS: Visualized portions of the thyroid are unremarkable. No enlarged mediastinal lymph nodes are identifi ed. Heart size is normal. No pericardial effusion. Thoracic aorta has a normal course and caliber. Pulmon sean artery is not enlarged. Airways are patent. No consolidation or pneumothorax. Strandy opacities at dependent portion lungs li negrito representing atelectasis. No suspicious lung nodules. No pleural effusion or thickening. Visualized upper abdomen is unremarkable. No suspicious osseous lesions or acute fractures. IMPRESSION: No acute process identified within the chest. Electronically signed by: Marilyn Diaz MD (11/08/2021 9:37 PM) [facility]
[2021-11-09 00:30] VITALS: BP 158/102
== END 2021-11-09 01:10 | disposition short-term general hospital (02) ==
LOC: ER 16:50
DX: R51.9 Headache, unspecified (principal); H53.8 Other visual disturbances; E78.00 Pure hypercholesterolemia, unspecified; I10 Essential (primary) hypertension; Z20.822 Contact with and (suspected) exposure to COVID-19
CPT/HCPCS: 36415; 70450; 70496; 70498; 71045; 71250; 80048; 80053; 81001; 82330; 82947; 83605; 83735; 84484; 85025; 85610; 85730; 86140; 87040; 87426; 93005; 96361; 96365; 96366; 96368; 96375; 96376; 99285; C9803; J0610; J1200; J1885; J1956; J2765; J3010; J3475; J7030; J7120; U0003